=== PATIENT | female | born 1960 | race Hispanic/Latino ===

== ENCOUNTER 2017-10-25 13:35 | Emergency (ER) | payer BC ==
[~2017-10-25] VITALS: Ht 162.6 cm; Wt 59.9 kg
[~2017-10-25 13:35] MED LIST: AUGMENTIN 875-1 EACH PO; CLINDAMYCIN HC300 MG PO; CYCLOBENZAPRINE10 MG PO; DAILY MULTIPLE1 EACH PO; DICLOFENAC SODI75 MG PO; DILAUDID8 MG PO; HYDROCODON-ACE1 EA10 PO; IBUPROFEN400 MG PO; IBUPROFEN800 MG PO; KEFLEX500 MG PO; MULTI VITAMIN1 EACH PO; NAPROXEN500 MG PO; NORCO 5-325 TA1 EACH PO; OMEPRAZOLE20 MG PO; PERCOCET 10-321 EACH PO; PROVENTIL HFA6.7 GM INH; TESSALON PERLE100 MG PO; Z-SLEEP50 MG/30 M PO; ZOFRAN ODT4 MG PO
--- NOTE | 2017-10-26 07:22 | EKG ---
[facility] [address] [facility] [place], [place] [address] Signed Normal sinus rhythm Normal ECG No previous ECGs available Confirmed by SHAHRZAD ESTRADA MD ([id number]) on 10/26/2017 7:22:49 AM Electronically Signed By: SHAHRZAD ESTRADA MD 10/26/17 07 PATIENT NAME: WING CASTRO Electrocardiogram DATE OF : 60 PHYSICIAN: SHAHRZAD ESTRADA MD REPORT #: [id number] REPORT IS CONFIDENTIAL AND NOT TO BE RELEASED WITHOUT AUTHORIZATION
[2017-11-01] MEDS ORDERED: CYCLOBENZAPRINE10 MG PO (08:07)
== END 2017-10-25 16:35 | disposition home or self-care (01) ==
LOC: ED 13:35
DX: K80.20 Calculus of gallbladder without cholecystitis without obstruction (principal); F17.200 Nicotine dependence, unspecified, uncomplicated; Z90.710 Acquired absence of both cervix and uterus; Z90.89 Acquired absence of other organs; Z88.5 Allergy status to narcotic agent; Z88.8 Allergy status to other drugs, medicaments and biological substances; Z79.899 Other long term (current) drug therapy
CPT/HCPCS: 76705; 80053; 81001; 83690; 85025; 93005; 93010; 96374; 96375; 99284; J1885; J2270; J2405

== ENCOUNTER 2017-11-04 05:40 | Day surgery (SDC) | payer BC ==
[~2017-11-04] VITALS: Ht 162.6 cm; Wt 59.9 kg
[2017-11-04] MEDS ORDERED: XANAX2 MG PO (06:12)
--- NOTE | 2017-11-04 09:06 | NUR ---
11/04/17 0906 Grace Ha 0840 REPORT FROM CAD SPECIALIST, PT REPORTED PAIN AND CNRA GAVE MEDICAITON. RESP EVEN AND UNLABORED. 0850 PT O2 SAT 100%, O2 REMOVED. 0855 PT REPORTING PAIN INCREASING, 04/18. MEDICAITON GIVEN. 904 O2 SAT DECREASED TO 91%, O2 PLACED ON PT AT 2L.
--- NOTE | 2017-11-04 09:48 | NUR ---
PT ARRIVES TO DS UNIT ROOM 5 VIA STRETCHER. PT APPEARS TO BE DROWSY AND GRIMACING. PT PROVIDED WATER, JELLO, AND CRACKERS. FRIEND IN ROOM UPON ARRIVAL, ASKS FOR PAIN MED SCRIPT TO FILL FOR FRIEND. SCRIPT GIVEN TO FRIEND WITH PT'S APPROVAL. CALL LIGHT WITHIN REACH, NO FURTHER REQUESTS AT THIS TIME.
--- NOTE | 2017-11-04 10:45 | NUR ---
PT RATES PAIN A 7/10 SINCE ARRIVAL. IV PAIN MEDS GIVEN. ORAL PAIN MEDS GIVEN WITH CRACKERS AND WATER. PT STATES SHE "JUST WANTS TO GO HOME." FRIEND NOT PRESENT IN ROOM. PT UP TO THE BATHROOM WITH RN ASSIST, AMBULATES WELL BUT GUARDING ABD. PT STATES SHE WAS ABLE TO VOID.
[2017-11-04] MEDS ORDERED: PERCOCET 10-321 EACH PO (11:08)
[2017-11-04] MEDS ORDERED: MIRALAX119 GM (11:08)
--- NOTE | 2017-11-04 11:25 | NUR ---
LE: 1045: PT REQUESTS TO PUT HER OWN CLOTHING ON AND STATES SHE "FEELS MORE COMFORTABLE IN THEM." PT STILL REQUESTS TO GO HOME WITH PAIN RATING 7/10 STATING SHE CAN "MANAGE HER PAIN BETTER AT HOME." LE 1059: DC'D LEFT HAND IV WNL. PT TOLERATED WELL. (UNABLE TO CHART IN COMPUTER IV WAS NOT SHOWING PRESENT). LE 1110: PT'S FRIEND BACK IN ROOM. PT REQUESTS IF SHE CAN AMBULATE AROUND UNIT. RN AGREES TO ASSIST PT, AND PT DECLINES RN ASSIST AND WOULD LIKE HER FRIEND TO HELP HER AMBULATE. PT AND FRIEND ABOUT TO WALK OUT OF DS UNIT, RN ADVISES PT TO SIGN AMA PAPERWORK IF SHE WANTS TO LEAVE WITHOUT RECEIVING DC INSTUCTIONS. PT AGREES TO WAIT FOR DC INSTRUCTIONS STATING "I DONT WANT TO GET IN TROUBLE, I JUST WANT TO LEAVE." PT AND FRIEND WAIT IN ROOM FOR DC INSTUCTIONS TO BE GIVEN. LE 1115: DC INSTRUCTIONS GIVEN IN PRESENCE OF PT AND FRIEND. PT AND FRIEND AGREE AND UNDERSTAND INSTRUCTIONS WITH NO FURTHER QUESTIONS. PT DC'D OUT OF DS UNIT ROOM 5 VIA WHEELCHAIR.
--- NOTE | 2017-11-10 10:17 | OR ---
[facility] [address] [place], [place] [address] Signed DATE OF OPERATION: 11/04/2017 SURGEON: Mary Lucas MD PREOPERATIVE DIAGNOSES: 1. Cholelithiasis with cholecystitis. 2. Resolved pancreatitis. POSTOPERATIVE DIAGNOSES: 1. Cholelithiasis with cholecystitis. 2. Resolved pancreatitis. PROCEDURE PERFORMED: Laparoscopic cholecystectomy with intraoperative cholangiogram. ESTIMATED BLOOD LOSS: None. FINDINGS: Luciano had an extremely long floppy gallbladder. It had multiple 3 to 4 mm yellow cholesterol stones. The intraoperative cholangiogram was unremarkable. INDICATIONS: Luciano is a 57-year-old female who has been using hydrocodone 10 mg tablets the last year for left joint pain. However, 2 days before she came to my office, she had significant upper abdominal pain that was radiating through to her back. Her liver function tests and her lipase were all elevated. Ultrasound confirmed multiple mobile stones within the gallbladder. The gallbladder wall was not thickened. The common bile duct was a little dilated at 12 mm. She was evaluated by the ER doctor and discharged to home. She has been my office previously. Consequently, she decided to come straight from the ER to my office for evaluation. She said the pain is better, but she was able to take her chronic pain medications. In the office, I gave Luciano a booklet on the gallbladder, and we looked at that together very carefully. She understands the relationship of the gallstones to the pancreatitis. We also talked about laparoscopic versus open cholecystectomy. She understands expected intraop and postop course. There are risks to surgery including, but not limited to, bleeding, infection, scarring, change in contour of the skin, damage to bowel, damage to main bile duct, and incisional hernias. We also discussed the idea that she has a 3% to 7% chance of having retained stones within the distal common bile duct. This would require any ERCP as an additional procedure. She had expressed understanding and wished to proceed. Electronically Signed By: MARY LUCAS MD 11/10/17 1017 PATIENT NAME: LUCIANO CASTRO OPERATIVE REPORT DATE OF : 60 PHYSICIAN: MARY LUCAS MD REPORT #: [id number] REPORT IS CONFIDENTIAL AND NOT TO BE RELEASED WITHOUT AUTHORIZATION [facility] [address] [place] [id number] Signed PROCEDURE NOTE: Luciano was taken into our operating room and placed in the supine position under general endotracheal tube anesthesia. She was given preoperative antibiotics along with subcutaneous heparin. SCDs were utilized. She did require Xanax p.o. because of her anxiety coming to the hospital. After this, she was prepped and draped in the usual sterile fashion. All trocars were placed in usual positions under direct visualization of camera without difficulty. Her gallbladder was grasped and elevated in the right upper quadrant. The findings were as above. We carefully dissected out the triangle of Calot. We placed a clip across the cystic artery and it was divided. Our intraoperative cholangiocatheter was then inserted into the cystic duct. The intraoperative cholangiogram was then performed without difficulty. The cystic duct stump was secured with a PDS endoloop. Two clips were placed across the cystic duct stump to johann its location. The cyst. The gallbladder was then carefully removed from the gallbladder fossa with the help of the cautery and placed into an EndoCatch bag. After this, the right upper quadrant was irrigated and suctioned out until clear. We used our laparoscopic suturing device to pass 0 Vicryl suture on either side of the fascia of the subxiphoid trocar site. This was tied down to close this fascia primarily. After this, the gas was allowed to escape and all the trocars were removed. We then closed the fascia of the supraumbilical trocar site with interrupted simple and [id number] 0 Vicryl sutures. Local anesthetic was injected into all trocar sites. Each trocar site was irrigated and suctioned out until clear. The skin and dermis of each trocar site was closed with interrupted subcuticular Monocryl sutures. The gallbladder was opened on the back table by our circulating nurse and pictures were taken for photodocumentation. Dry gauze and tape were applied to all incisions. Luciano was awakened from anesthesia, extubated in the OR, and taken to recovery room in stable condition. Mary Lucas MD ALB/MODL /[id number] cc: Lyle Flood MD Electronically Signed By: MARY LUCAS MD 11/10/17 1017 PATIENT NAME: LUCIANO CASTRO OPERATIVE REPORT DATE OF : 60 PHYSICIAN: MARY LUCAS MD REPORT #: [id number] REPORT IS CONFIDENTIAL AND NOT TO BE RELEASED WITHOUT AUTHORIZATION [address] [address] Signed MOISES Mcdonnell Electronically Signed By: MARY LUCAS MD 11/10/17 1017 PATIENT NAME: GLORIALUCIANO MILAGROS OPERATIVE REPORT DATE OF : 60 PHYSICIAN: MARY LUCAS MD REPORT #: [id number] REPORT IS CONFIDENTIAL AND NOT TO BE RELEASED WITHOUT AUTHORIZATION
== END 2017-11-04 11:17 | disposition home or self-care (01) ==
LOC: DS 05:40
PROVIDERS: Colon & Rectal Surgery
PROC: BF03YZZ Plain Radiography of Gallbladder and Bile Ducts using Other Contrast (ICD-10-PCS; 2017-11-04)
PROC: 0FT44ZZ Resection of Gallbladder, Percutaneous Endoscopic Approach (ICD-10-PCS; principal; 2017-11-04 06:45)
DX: K80.10 Calculus of gallbladder with chronic cholecystitis without obstruction (principal); K21.9 Gastro-esophageal reflux disease without esophagitis; M17.0 Bilateral primary osteoarthritis of knee; M16.0 Bilateral primary osteoarthritis of hip; J32.9 Chronic sinusitis, unspecified; F17.210 Nicotine dependence, cigarettes, uncomplicated; Z90.89 Acquired absence of other organs; Z90.710 Acquired absence of both cervix and uterus; Z98.51 Tubal ligation status; Z98.890 Other specified postprocedural states; Z88.8 Allergy status to other drugs, medicaments and biological substances
CPT/HCPCS: 00790; 74300; J0330; J0690; J1100; J1644; J1885; J2250; J2270; J2405; J2704; J3010; J7120; Q9967

== ENCOUNTER 2017-12-28 08:20 | Day surgery (SDC) | payer BC ==
[~2017-12-28] VITALS: Ht 162.6 cm; Wt 59.9 kg
[~2017-12-28 08:20] MED LIST changes: +MIRALAX119 GM; +XANAX2 MG PO
--- NOTE | 2017-12-28 10:41 | NUR ---
12/28/17 1041 Carmen Paul 1007 PT ARRIVED IN PACU SLEEPY WITH NO C/O'S. ICE TO ABD. 1022 C/O ABD PAIN 610. FENTANYL 25MCG GIVEN IVP. 1029 NO CHANGE IN PAIN. REPEATED FENTANYL 25MCG IVP. 1035 PT RESTING. REU. 1039 C/O ABD PAIN 6/10. FENTANYL 25MCG GIVEN IVP. PT ASKING MULTIPLE QUESTIONS "IS THIS NORMAL TO HURT LIKE THIS AND I HAVE A BAD FEELING." REASSURED PT CONTINUOUSLY.
--- NOTE | 2017-12-28 11:54 | NUR ---
SOUP AND CRACKERS AND GIVEN. PT SITTING UP IN BED AND TOLERATING THAT FINE. DAUGHTER @ BS. ICED WATER GIVEN. CALL LIGHT W/IN REACH.
--- NOTE | 2017-12-28 11:59 | OR ---
[facility] [address] [place], [place] [address] Signed DATE OF OPERATION: 12/28/2017 SURGEON: Mary Lucas MD PREOPERATIVE DIAGNOSIS: Supraumbilical incarcerated trocar site, incisional hernia (3 cm). POSTOPERATIVE DIAGNOSES: 1. Supraumbilical incarcerated trocar site, incisional hernia (3 cm). 2. Umbilical hernia (4 mm). PROCEDURE: Supraumbilical trocar site incisional herniorrhaphy with intraabdominal Ventralex mesh (8 cm) (prolonged and difficult at 1 hour and 5 minutes). ESTIMATED BLOOD LOSS: None. FINDINGS: Luciano had a supraumbilical incarcerated trocar site incisional hernia containing omentum rather than being 1 cm in diameter, it was actually 3 cm in diameter. The omentum was circumferentially adherent to the fascial edge and it took extra time to divide that and placed it back in the abdomen. In addition, she has had several previous laparoscopic surgeries through her umbilicus through an infraumbilical incision and therefore had scar tissue at the base of the umbilicus associated with a 4 mm umbilical hernia. This had all be taken down as well and added additional time to the surgery and therefore we had to replace the umbilicus to the fascia later in the procedure taken together. This procedure was twice as long was normal for a simple supraumbilical trocar site incisional hernia. In this way, the procedure was prolonged and difficult. INDICATIONS: Luciano is a 57-year-old female, who continues to smoke at least half pack of cigarettes a day for the last 25 years. In October 2017, we had her for laparoscopic cholecystectomy. 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 She unfortunately developed an incisional hernia just above the umbilicus. It is painful and it is very difficult for her to lean up against the blackjack table or the house. Consequently, she came back to the office to have me look at it. I felt like I was able to partially reduce it in the office. I explained to Luciano that her risk of hernia is higher with the smoking and she does have a chronic smoker's cough. In fact, today, she was Electronically Signed By: MARY LUCAS MD 12/28/17 1159 PATIENT NAME: LUCIANO CASTRO OPERATIVE REPORT DATE OF : 60 REPORT #: [id number] PHYSICIAN: MARY LUCAS MD PCP: DALY STOCK REPORT IS CONFIDENTIAL AND NOT TO BE RELEASED WITHOUT AUTHORIZATION [facility] [address] [place] [phone] Signed coughing in our preop area. She was coughing in the operating room before we put her sleep and as soon as she woke up, she was coughing again. In our preop area, I met with Luciano and her daughter. We were able to identify the hernia and once again, I was not convinced I could completely reduce it. We marked the hernia appropriately before we took her into the operating room. In the office, I given Luciano a booklet on hernias and we looked at the nature of an incisional hernia along with a difference between the primary suture repair and a mesh repair. She understands and expected intraop and postop course. We did review the risks including, but not limited to bleeding, infection, scarring, change in contour of the skin, damage to bowel, infection of mesh requiring removal, recurrent hernias and chronic pain. She had expressed understanding and wished to proceed. PROCEDURE NOTE: Luciano was taken into our operating room and placed in the supine position under general endotracheal tube anesthesia. She was given preoperative antibiotics along with subcutaneous heparin. SCDs were utilized. After this, we utilized our previous supraumbilical transverse incision. We carried that down around the fascial defect. We worked on the superior side and we were able to free up the hernia sac from the fascial edge. As we approached the inferior side toward the umbilicus, we encountered a significant amount of scar tissue. In the end, we had to separate the umbilical skin from the underlying fascia in order to divide the previous chronic scar tissue from her previous laparoscopic surgeries. She had omentum through the fascial defect and adherent circumferentially to the edge of the fascial defect. Rather than a simple 1 cm trocar site, she had a 3 cm fascial defect. It took extra time to carefully divide the omentum from the fascial edge and control the small bleeders. Once the omentum was completely freed, we pulled it up through the fascial defect and we inspected it carefully. All hemostasis was excellent. There was no hole in the omentum that might lead to an internal hernia. After this, the omentum was reduced. We had to clean up some of the tissue around the fascial edge with our cautery. We then measured the fascial defect at 3 cm. We therefore chose our 8 cm round Ventralex mesh. We placed that in the abdominal cavity and laid it out flush and brought it up against the posterior abdominal wall. The fascial defect was then closed transversely with a running #1 Prolene suture to include the 4 mm umbilical fascial defect as well. Several passes of the suture went through the tab on the mesh to help keep it centered and hold it in place. The tab was then cut flush with the abdominal wall and discarded. After this, the abdominal wall was infiltrated with local anesthetic along the subcutaneous tissues. The wound was then irrigated and suctioned out until clear. We used a 2-0 PDS interrupted suture to hold the umbilical skin back down to the abdominal wall. We then closed some of the indurated subcutaneous fat gently with interrupted 3-0 Monocryl sutures. The dermis was then reapproximated with interrupted 3-0 subcuticular stitches. The skin edges were then reapproximated with a running 6-0 fast absorbing plain gut suture. Dry gauze and tape Electronically Signed By: MARY LUCAS MD 12/28/17 1159 PATIENT NAME: LUCIANO CASTRO OPERATIVE REPORT DATE OF : 60 REPORT #: [id number] PHYSICIAN: MARY LUCAS MD PCP: DALY STOCK REPORT IS CONFIDENTIAL AND NOT TO BE RELEASED WITHOUT AUTHORIZATION [address] [address] Signed were then applied. Luciano was awakened from anesthesia, extubated in the OR, and taken to recovery room in stable condition. MD BELLE Love/WILDER /[id number] cc: MD Mary Mills MD Linda Harries, PA Copies: AUGUSTO SMALL MD, ANDREW L MD HARRIES, LINDA PA ~ Electronically Signed By: MARY LUCAS MD 12/28/17 1159 PATIENT NAME: LUCIANO CASTRO OPERATIVE REPORT DATE OF : 60 REPORT #: [id number] PHYSICIAN: MARY LUCAS MD PCP: DALY STOCK REPORT IS CONFIDENTIAL AND NOT TO BE RELEASED WITHOUT AUTHORIZATION
--- NOTE | 2017-12-28 13:02 | NUR ---
PATIENT IS UP TO BR AND VOIDS FOR A SECOND TIME AND REQ DC HOME. VERBAL DC INSTRUCTIONS GIVEN IN PRESENCE OF PT'S DAUGHTER AND BOTH VERBALIZE UNDERSTANDING. PT DRESSES SELF IN PRESENCE OF DAUGHTER.
--- NOTE | 2017-12-28 13:31 | NUR ---
LE 1320: PATIENT TRANSFERS SELF TO AND PERSONAL VEHICLE AND TOLERATES THOSE TRANSFERS WELL.
== END 2017-12-28 13:20 | disposition home or self-care (01) ==
LOC: DS 08:20
PROVIDERS: Colon & Rectal Surgery
PROC: 0WUF0JZ Supplement Abdominal Wall with Synthetic Substitute, Open Approach (ICD-10-PCS; principal; 2017-12-28 11:00)
DX: K43.0 Incisional hernia with obstruction, without gangrene (principal); K42.9 Umbilical hernia without obstruction or gangrene; J32.9 Chronic sinusitis, unspecified; K21.9 Gastro-esophageal reflux disease without esophagitis; M16.0 Bilateral primary osteoarthritis of hip; M17.0 Bilateral primary osteoarthritis of knee; F17.210 Nicotine dependence, cigarettes, uncomplicated; J40 Bronchitis, not specified as acute or chronic; Z90.89 Acquired absence of other organs; Z98.51 Tubal ligation status; Z88.8 Allergy status to other drugs, medicaments and biological substances; Z79.899 Other long term (current) drug therapy
CPT/HCPCS: 00830; C1781; J0131; J0690; J1644; J1885; J2250; J2270; J2704; J2710; J2765; J3010; J7120

== ENCOUNTER 2019-01-25 07:05 | Observation (INO) | payer BC ==
[~2019-01-25] VITALS: Ht 162.6 cm; Wt 63.5 kg
[~2019-01-25 07:05] MED LIST changes: +ASPIR-LOW81 MG PO; +LIPITOR20 MG PO
--- NOTE | 2019-01-25 11:27 | NUR ---
01/25/19 1127 [address] SN 1116- PT ARRIVES TO PACU. PT IS ON 7 LITERS VIAS MASK QWITH 02 SATS IN HIGH 90'S. RESPS EVEN AND UNLABORED. PT DENIES PAIN NAUSEA AND DIZZINESS AT THIS TIME. VITAL SIGNS DELAYED DUE TO PT MOVING TO MUCH TO TAKE BLOOD PRESSURE.
--- NOTE | 2019-01-25 12:20 | NUR ---
PT ARRIVED FROM PACU. PT REPORTS 6/10 PAIN. SEE MAR FOR MEDICATION GIVEN. ASSESSMENT DONE. DRESSING SHOWS SMALL AMOUNT OF SHADOWING ON RIGHT SIDE OF DRESSING. PT REFUESES TO USE INCENTIVE SPIROMETER AT THIS TIME. PT PACING IN ROOM, GETTING UP AND DOWN FROM BED. PT ENCORUAGED TO STAY IN BED FOR THE NEXT HOUR FOR SAFETY PT IS NOT STEADY ON FEET. MD INFORMED OF PTS ANXIETY. VITALS TAKEN. PT UP TO VOID X2. PT TOLERATING PO WATER AND ICE CREAM. DAUGHTER AT BEDSIDE. NO ADDITIONAL REQUESTS OR COMPLAINTS. PT DEMONSTRATES USE OF CALL LIGHT. BED ALARM ON. MD STATES TO HOLD BOLUS FLUIDS, BOLUS HELD. PHARMACIST CALLED REGARDING TIMING OF ATROVASTATIN, STATES TO GIVE AT THIS TIME. SEE MAR FOR MEDICATIONS GIVEN. CALL LIGHT WITHIN REACH.
--- NOTE | 2019-01-25 13:20 | NUR ---
VITALS AND ASSESSMENT DUE. THIS RN TO BEDSIDE. PT RESTING ON RIGHT SIDE IN BED. PT REPROTS 4/10 PAIN. PT CONTINUES TO BE ANXIOUS, SQUIRMING IN BED, AND GETTING UP FREQUENTLY. THIS RN WALKS PT AROUND THE ROOM AND TO RESTROOM. PT UNSTEADY ON FEET. PT AGREES TO TAKE ATAVAN. SEE MAR FOR MEDICATION GIVEN. VITALS TAKEN. ASSESSMENT DONE. NO NEW DRAINAGE NOTED ON DRESSING. CRACKERS AND SODA PROVIDED PER PT REQUEST. PT ASSISTED WITH ORDING FOOD. NO ADDITIONAL REQUESTS OR COMPALINTS AT THIS TIME. BED ALARM ON. CALL LIGHT WITHIN REACH.
--- NOTE | 2019-01-25 14:05 | NUR ---
PATIENT CALLS TO USE BATHROOM. PATIENT GOES TO USE BATHROOM. ONE PERSON ASSISTING. PATIENT BACKS TO BED. PATIENT ASKS FOR CRACKERS AND COCA COLA. CRACKERS AND COCA COLA GIVEN. I&O DONE. CALL LIGHT WITHIN REACH. NO OTHER NEEDS AT THIS TIME
--- NOTE | 2019-01-25 14:19 | NUR ---
VITALS AND ASSESSMENT DUE. THIS RN TO BEDSIDE. PT REPORTS 5/10 PAIN AND DENIES NEED FOR ADDITIONAL PAIN MEDICATION AT THIS TIME. SMALL AMOUNT OF RED DRAINAGE NOTED ON RIGHT SIDE OF DRESSING, WITH ERASER SIZE NEW DRAINAGE. PT DENIES NAUSEA. PT REPORTS HUNGER, PT ENCORUAGED TO LOOK AT MENU BUT STATES "I DONT' WANT ANYTHING FROM THERE." PT NOW RESTING IN BED AND REPORTS IMPROVEMENT IN ANXIETY. SBA UP TO RESTROOM. PT CONTINUES TO BE IMPULSIVE AND UNSTEADY AT TIMES. PT BACK TO BED. PT REACHES 1500 ON INCENTIVE SPIROMETER. NO ADDITIONAL REQUESTS OR COMPLAINTS AT THIS TIME. CALL LIGHT WITHIN REACH. BED ALARM ON.
--- NOTE | 2019-01-25 15:15 | NUR ---
PATIENT ASKED FOR WALK IN THE HALLWAY. PATIENT'S DAUGHTER AND THIS CASTING SUPERVISOR WALKED WITH HER ONE LAP AND THEN PATIENT SAID TO ME I DON'T NEED YOUR HELP, "I'M WITH MY DAUGHTER". I NOTIFIED NURSING STAFF AND RN IN CHARGE BECAUSE PATIENT DISAPPEARED AND AT THIS TIME THE DIRECTOR IMMUNOLOGY CALL BECAUSE THE PATIENT WAS LEAVING OUTSIDE.
--- NOTE | 2019-01-25 15:23 | NUR ---
THE FOLLOWING NOTE WAS WRITTEN BY SHELLEY HO (ORIGINALY POSTED IN THE WRONG CHART): PT LEFT THE FLOOR, HERRERA ROSA INFORMED ME THAT THE PT WAS VERY RUDE ABOUT GOING ON A WALK BY HERSELF WITH HER DAUGHTER, HERRERA TRIED TO MAKE HER STAY. HERRERA WAS WATCHING HER FROM THE END OF THE HALLWAY AND THE STRUCTURAL STEEL IRONWORKER CALLED TO SAY THE PATIENT IS UPFRONT AND WALKING OUTSIDE. I WENT OUT FRONT WITH TO HAVE HER COME BACK INSIDE, INFORMED PATIENT THAT IT IS AGAINST HOSPITAL POLICY FOR HER TO LEAVE AND ALSO TO BE SMOKING. AND THE DANGERS WITH SMOKING WITH HER RECENT SURGERY. OFFERED PT A WHEELCHAIR AND SHE DENIED. PT BACK IN ROOM.
--- NOTE | 2019-01-25 15:30 | NUR ---
I WAS NOTIFIED BY OTHER NURSING STAFF AT 1518 THAT THE PT IS MISSING. STAFF WENT LOOKING FOR THE PT AND SHE RETURNED TO HER ROOM AT 1521 FOR WHICH SHE WENT OUTSIDE TO SMOKE. PT STATES SHE THOUGHT SHE WAS ALLOWED AND STATES SHE WILL NOT GO OUT AGAIN. OPTICS ENGINEER AND DR WATERS NOTIFIED. 1524: DR WATERS TO THE ROOM SPEAKING WITH THE PT AND CHECKING UP ON HER. VSS AND PT STATES HER NECK PAIN IS A 7/10 WHICH SHE STATES IS ACCEPTABLE AND DOES NOT NEED ANYTHING FOR IT. SHE STATES SHE WILL NOTIFY STAFF IF HER PAIN INCREASES. MEPLEX DRESSING ON THE PT'S NECK REMAINS IN PLACE WITH SOME SHADOWING ON THE RIGHT SIDE NOTED.
--- NOTE | 2019-01-25 15:40 | NUR ---
THIS RN NOTIFIED THAT PT HAD LEFT FLOOR. THIS RN TO BEDSIDE. PT WORKING WITH MARLO APODACA. PT EDUCATION DONE. PT VERBALIZES UNDERSTANDING OF EDUCATION. PT REPORST 6/10 PAIN AND DENIES NAUSEA. DRESSING REAMINS WITH SMALL AMOUNT OF SHADOWING, NO NEW DRAINAGE NOTED. MD AWARE OF PTS TIME OFF OF UNIT, NICOTENE PATCH ORDERED. CALL LIGHT WITHIN REACH. BED ALARM ON.
--- NOTE | 2019-01-25 15:44 | NUR ---
AWARE OF THE PT LEAVING THE DEPT. PT IS NOW BACK IN HER ROOM AND SHE STATES SHE WILL NOT LEAVE AGAIN.
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
--- NOTE | 2019-01-25 16:07 | NUR ---
PT'S NECK APPEARS UNCHANGED WITH NO SWELLING NOTED AND THE PT DENIES ANY SOB. PT STATES HER PAIN IS A 7/10 AND WOULD LIKE SOMETHING FOR IT, SEE EMAR.
--- NOTE | 2019-01-25 16:51 | NUR ---
PT SLEEPING AT THIS TIME.
--- NOTE | 2019-01-25 17:44 | NUR ---
AFTERNOON ASSESSMENT DUE. THIS RN TO BEDSIDE. PT RESTING ON RIGHT SIDE WITH EYES CLOSED. PT OPENS EYES TO MOVEMENT IN ROOM. ASSESSMENT DONE. DRESSING CONTINUES TO SHOW TWO SMALL DIME SIZE RED DRAINGE SPOTS ON RIGHT SIDE. NO NEW DRAINAGE NOTED. LUNG SOUNDS WHEEZY, CLEARS WITH I.S. USE. PT REACHES 1500 ON I.S. PT REPORTS 4/10 PAIN AND DENIES NEED FOR ADDITIONAL PAIN MEDICATION AT THIS TIME. PT BACK TO RESTING ON RIGHT SIDE. NO ADDITIONAL REQUESTS OR COMPLAINTS AT THIS TIME. DINNER AT BEDSIDE, PT STATES "ILL EAT LATER." BED RAILS UP. CALL LIGHT WITHIN [facility]. BED ALARM ON.
--- NOTE | 2019-01-25 17:46 | NUR ---
PT POST OP DAY ZERO FOR RIGHT THYROID ECTOMY. 1PA, PT LEFT UNIT TODAY AND WAS FOUND OUTSIDE SMOKING. EDUCATION DONE. NICOTENE PATCH IN PLACE. PT TOELRATING REGULAR DIET WITH NO NAUSEA THIS SHIFT. FREQUENT URINATION, VOIDING QUANTITY SUFFICIENT. DRESSING SHOWS SMALL AMOUNT OF SHADOWING. PRN PAIN MEDICATION GIVEN X2 THIS SHIFT. PRN ATAVAN GIVEN X1 FOR ANXIETY. BED ALARM ON. PT DOES NOT USE CALL LIGHT.
--- NOTE | 2019-01-25 18:27 | NUR ---
THIS RN TO ROOM TO CHECK ON PT. PT VISITING WITH FAMILY. PT REPORTS PAIN AT 4/10 AND DENIES NAUSEA. PT HAS YET TO EAT DINNER. PT STATES "I'LL EAT A LITTLE LATER." PUDDING PROVIDED FOR PTS GRANDDAUGHTER. NO ADDTIONAL REQUESTS OR COMPLAINTS. CALL LIGHT WITHIN REACH.
--- NOTE | 2019-01-25 19:10 | NUR ---
SHIFT REPORT RECEIVED FROM [facility] MARLO MCNAMARA AT BEDSIDE. PT RESTING IN BED, EYES CLOSED, RR WNL. PT APPEARS COMFORTABLE, NO DISTRESS NOTED. MEPILEX IN PLACE, MINIMAL SHADOWING NOTED. WILL MONITOR. CALL LIGHT IN REACH.
--- NOTE | 2019-01-25 20:09 | NUR ---
ASSESSMENT COMPLETE, PT A/OX4. RATES PAIN 05/19. PRN PERCOCET GIVEN PER PT REQUEST. VSS. PT REPORTS PAIN WITH SWALLOWING, DENIES SOB OR CHEST PAIN. MEPILEX TO NECK INTACT, MINIMAL SANGUINEOUS SHADOWING NOTED TO NECK. WILL MONITOR. PT SITTING UP IN BED, FRESH SODA PROVIDED. NO FURTHER NEEDS. CALL LIGHT IN REACH.
--- NOTE | 2019-01-25 20:13 | NUR ---
HELPED PT TO THE BATHROOM AND BACK TO BED. BEDSIDE TABLE AND CALL LIGHT IN REACH.
--- NOTE | 2019-01-26 00:04 | NUR ---
HELPED PT TO THE BATHROOM AND BACK TO BED. WARM BLANKET GIVEN AND HEAT TURNED UP. PT NEEDS NOTHING MORE AT THIS TIME.
--- NOTE | 2019-01-26 00:13 | NUR ---
PT CALLED ASKING FOR PAIN MEDICATION. ADMINISTERED 2 PERCOCET FOR 7/10 PAIN. PT DENIES FURTHER NEEDS AT THIS TIME. CALL LIGHT IS WITHIN REACH.
--- NOTE | 2019-01-26 01:03 | NUR ---
PT RESTING IN BED ON RA. RR WNL. NO DISTRESS NOTED, CALL LIGHT IN REACH. IV FLUIDS INFUSING PER MD ORDERS, SITE WNL.
--- NOTE | 2019-01-26 03:00 | NUR ---
ASSESSMENT COMPLETE. NO NEW CONCERNS. PT RATES PAIN 6-7/10 AFTER LAST PRN PAIN MEDICATION ADMINISTRATION. PT A/O. MEPILEX DRESSING INTACT, NO NEW SHADOWING OR DRAINAGE NOTED FROM PREVIOUS ASSESSMENT. PT DENIES NEEDS, CALL LIGHT IN REACH.
--- NOTE | 2019-01-26 03:58 | NUR ---
HELPED PT TO THE BATHROOM AND BACK TO BED. PT ASKED FOR PAIN MEDICATION. I INFORMED HER RN TONYA.
--- NOTE | 2019-01-26 04:14 | NUR ---
PT REPORTS 7/10 PAIN. PRN PERCOCET ADMINISTERED. PT DENIES ADDITIONAL NEEDS. SCD'S IN PLACE. CALL LIGHT IN REACH.
--- NOTE | 2019-01-26 06:43 | NUR ---
PT HAD UNEVENTFUL NIGHT. PT SLEPT ON AND OFF THIS SHIFT. PT REQUESTING 2 PERCOCET Q4H FOR ADEQUATE 6/10 PAIN CONTROL. PT SBA WITH AMBULATION. MEPILEX INTACT, NO NEW SHADOWING NOTED THIS SHIFT. PT REGULAR DIET, TOLERATING WELL. NO NAUSEA THIS SHIFT.
--- NOTE | 2019-01-26 07:15 | NUR ---
PATIENT SITTING UP IN BED. RN IN ROOM. HANDS AND FACE CLEANED. PATIENT'S BREAKFAST ORDERED. PATIENT TRANSFERRED TO TO CHAIR. CHAIR ALARM ON. BLACK COFFEE GIVEN. CALL LIGHT WITHIN REACH. NO OTHER NEEDS AT THIS TIME
--- NOTE | 2019-01-26 07:33 | NUR ---
Pt resting in bed and is tearfull this am. She states her pain is controlled but states she just wants to "go home". She was asked if she would like some ativan to help her calm down and she declined. After speaking with the pt for a while she did calm down and states that she is "okay" and she is now speaking calmly. Dressing remains intact with some noted shadowing and the pt denies any sob. Trach tray remains at the bedside, hob is elevated and the call light is within reach, scd's are on and runninig.
--- NOTE | 2019-01-26 08:21 | NUR ---
PATIENT CALLS AND ASKS FOR PAIN MEDICINE. RN NOTIFIED.
--- NOTE | 2019-01-26 08:39 | NUR ---
PT RESTING IN HER CHAIR HAVING JUST FINISHED EATING BREAKFAST. SHE STATES SHE HAS PAIN RATED AT 7/10 AND WAS MEDICATED. SHE STATES SHE WANTS TO GO HOME AND STARTED CRYING, SHE WAS MEDICATED WITH ATIVAN ORDERED AND REASSURED THAT DR WATERS WILL BECOMING TO SEE HER LATER TODAY. PT STATES SHE UNDERSTANDS AND CALMED DOWN AFTER THE MEDICATIONS WERE GIVEN.
[2019-01-26] MEDS ORDERED: VENTOLIN HFA18 GM INH (08:43)
--- NOTE | 2019-01-26 08:44 | NUR ---
MED REC COMPLETE
--- NOTE | 2019-01-26 09:08 | NUR ---
PATIENT SITTING UP IN CHAIR. VITAL SIGNS AND I&O DONE. ICE WATER GIVEN. CHAIR ALARM ON. CALL LIGHT WITHIN REACH. NO OHTER NEEDS AT THIS TIME
--- NOTE | 2019-01-26 09:54 | NUR ---
PT SLEEPING AT THIS TIME.
--- NOTE | 2019-01-26 09:55 | NUR ---
PT AWOKE WHILE I WAS IN HER ROOM AND SHE STATES SHE IS DOING BETTER AT THIS TIME.
--- NOTE | 2019-01-26 11:19 | NUR ---
PT SLEEPING AT THIS TIME.
--- NOTE | 2019-01-26 13:11 | NUR ---
PATIENT SITTING UP IN CHAIR. DAUGHTER IN ROOM. VITAL SIGNS AND I&O DONE. PATIENT IS STILL THINKING ABOUT TO ORDER LUNCH. ICE WATER AND COFFEE GIVEN. CALL LIGHT WITHIN REACH. NO OTHER NEEDS AT THIS TIME
[2019-01-26] MEDS ORDERED: NICOTINE PATCH1 EAC1 TD (13:47)
[2019-01-26] MEDS ORDERED: OXYCODON-ACETA1 EAC2 PO (13:47)
[2019-01-26] MEDS ORDERED: TYLENOL325 MG PO (13:48)
--- NOTE | 2019-01-26 14:09 | NUR ---
PATIENT SITTING UP IN CHAIR. DAUGHTER IN ROOM. FINAL VITAL SIGNS WERE OBTAINED PRIOR TO DISCHARGE FROM THE UNIT.
== END 2019-01-26 14:10 | disposition home or self-care (01) ==
LOC: DS 07:05 → MS 11:37 → DS 12:15 → MS 12:15 → DS 01-26 14:10 → MS 01-26 14:10
PROVIDERS: ADMIT Surgery
PROC: 0GTH0ZZ Resection of Right Thyroid Gland Lobe, Open Approach (ICD-10-PCS; 2019-01-25)
PROC: 0GTJ0ZZ Resection of Thyroid Gland Isthmus, Open Approach (ICD-10-PCS; principal; 2019-01-25 08:45)
DX: D34 Benign neoplasm of thyroid gland (principal); G89.29 Other chronic pain; J44.9 Chronic obstructive pulmonary disease, unspecified; E03.9 Hypothyroidism, unspecified; F41.9 Anxiety disorder, unspecified; M25.552 Pain in left hip; F17.210 Nicotine dependence, cigarettes, uncomplicated; Z88.8 Allergy status to other drugs, medicaments and biological substances; Z79.891 Long term (current) use of opiate analgesic; Z79.51 Long term (current) use of inhaled steroids; Z79.899 Other long term (current) drug therapy
CPT/HCPCS: 00320; G0378; J0131; J0330; J0690; J1100; J1885; J2250; J2300; J2405; J2704; J3010; J3475; J7120

== ENCOUNTER 2019-03-14 07:00 | Day surgery (SDC) | payer BC ==
[~2019-03-14] VITALS: Ht 162.6 cm; Wt 63.5 kg
[~2019-03-14 07:00] MED LIST changes: +NICOTINE PATCH1 EAC1 TD; +OXYCODON-ACETA1 EAC2 PO; +TYLENOL325 MG PO; +VENTOLIN HFA18 GM INH
--- NOTE | 2019-03-14 09:38 | NUR ---
03/14/19 0938 Leanne Sanchez 0929-PATIENT ARRIVED TO PACU ON 6L MASK REACTIVE COUGHING ORAL AIRWAY IN PLACE. RR EVEN. SR. 0932-ORAL AIRWAY REMOVED. ABDOMEN SOFT PASSING GAS. COUGHING SUCTIONED CLEAR SPUTUM SEEN. 0937-PATIENT AWAKE DENIES NAUSEA OR PAIN TO ABDOMEN. REPORTS "WAS SUPPOSED TO HAVE HIP REPLACED 2 YEARS AGO SO HURTS AT HOME" LAB AT BEDSIDE TO DRAW BLOOD. PATIENT ON RA 99%.
--- NOTE | 2019-03-14 15:06 | OR ---
[facility] [address], [place] [address] Signed DATE OF OPERATION: 03/14/2019 SURGEON: Mary Lucas MD PREOPERATIVE DIAGNOSIS: Rectal bleeding. POSTOPERATIVE DIAGNOSES: 1. Minimal sigmoid diverticulosis. 2. 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 PROCEDURE: Colonoscopy with cold biopsy. ESTIMATED BLOOD LOSS: None. INDICATIONS: Luciano is a 58-year-old female who has had trouble for the last 9 to 12 months with rectal bleeding. She says in the last 2 months has been coming out with blood clots. She had been to her primary care provider. She was asked to see me for her initial colonoscopy. To her knowledge, there is no family history of colon cancer or polyps. I gave her a pamphlet on colonoscopy in the office. We did review that in detail. She understands the nature of the test along with the risks including, but not limited to gas, bloating, crampy abdominal pain, bleeding, perforation requiring surgery, and missed diagnosis. In addition, she requires daily hydrocodone 10 mg tablets 4 times a day for chronic pain along with her cyclobenzaprine. Consequently, we did ask that an anesthesia provider help us with increased monitoring and sedation with propofol. That proved to be a bryant decision as she obviously required the propofol in order to adequately sedate her. Luciano had expressed her understanding and wished to proceed. PROCEDURE NOTE: Luciano was taken into our endoscopy suite and placed in the left lateral decubitus position. She was given IV sedation with propofol per our nurse certified medical assistant. A digital rectal exam was performed. She has good sphincter tone. A small external hemorrhoid. In the posterior midline, she has an ulcerated mass. It was probably 3 or 4 cm from the anal verge. I can place my index finger over the top of the mass and circumferentially around the mass and then inferiorly. I pushed on the mass [id number] and it does not appear fixed to any underlying structures. After this, the adult colonoscope was introduced and advanced all the way around into the cecum under direct visualization of Electronically Signed By: MARY LUCAS MD 03/14/19 1506 PATIENT NAME: LUCIANO CASTRO OPERATIVE REPORT DATE OF : 60 REPORT #: [id number] PHYSICIAN: MARY LUCAS MD PCP: SUNSHINE STOCK REPORT IS CONFIDENTIAL AND NOT TO BE RELEASED WITHOUT AUTHORIZATION [facility] [address], [place] [address] Signed the camera without difficulty. Her prep was average. She did have some areas of liquid pasty stool I could not quite irrigate and suction out completely. We did see the appendiceal orifice, the rampart's foot, and the ileocecal valve. We took pictures throughout for photodocumentation. The scope was then slowly withdrawn. We found that she does have some sigmoid diverticula. They were moderate in size, but few in number and scattered about. The rectum was unremarkable other than the rectal tumor. We did retroflex the scope, but there was enough liquid stool that I could not get a nice view of the rectal tumor on the retroflexed position of the scope. We went ahead and anteflexed the scope and brought the scope down and we took multiple cold biopsies of this obviously ulcerated tumor mass. Additional pictures were taken of the tumor for photodocumentation. After this, the gas was suctioned out and colonoscope removed. Luciano tolerated the procedure quite well. RECOMMENDATIONS: I will see Luciano back in my office in 7 to 14 days to review her results. We have ordered a CEA level in the recovery room. She will need a CT scan of chest, abdomen, and pelvis and eventually an MRI of her pelvis. Mary Lucas MD ALB/MODL /[id number] cc: MD Sunshine Love PA Copies: MARY LUCAS MD, LINDA PA ~ Electronically Signed By: MARY LUCAS MD 03/14/19 1506 PATIENT NAME: LUCIANO CASTRO OPERATIVE REPORT DATE OF : 60 REPORT #: [id number] PHYSICIAN: MARY LUCAS MD PCP: SUNSHINE STOCK REPORT IS CONFIDENTIAL AND NOT TO BE RELEASED WITHOUT AUTHORIZATION
== END 2019-03-14 10:10 | disposition home or self-care (01) ==
LOC: OPS 07:00 → DS 07:00 → OPS 08:15 → DS 09:45 → OPS 09:45
PROVIDERS: Colon & Rectal Surgery
PROC: 0DBP8ZX Excision of Rectum, Via Natural or Artificial Opening Endoscopic, Diagnostic (ICD-10-PCS; principal; 2019-03-14 08:15)
DX: C20 Malignant neoplasm of rectum (principal); K57.30 Diverticulosis of large intestine without perforation or abscess without bleeding; J32.9 Chronic sinusitis, unspecified; K21.9 Gastro-esophageal reflux disease without esophagitis; F17.210 Nicotine dependence, cigarettes, uncomplicated; J44.9 Chronic obstructive pulmonary disease, unspecified; R51 Headache; G89.29 Other chronic pain; K44.9 Diaphragmatic hernia without obstruction or gangrene; Z88.8 Allergy status to other drugs, medicaments and biological substances; Z88.5 Allergy status to narcotic agent; Z79.891 Long term (current) use of opiate analgesic; Z79.82 Long term (current) use of aspirin; Z79.899 Other long term (current) drug therapy
CPT/HCPCS: 36415; 82378; J2704; J7120

== ENCOUNTER 2019-06-28 11:46 | Inpatient (IN) | payer BC ==
[~2019-06-28] VITALS: Ht 162.6 cm; Wt 56.6 kg
--- OUTSIDE RECORDS SUMMARY | 2019-06-28 11:50 | XMS ---
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 Fouzia VISIT COUNT (12 MO.) Sridevi Almaraz TOTAL 1 NOTE: Visits indicate total known visits. 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
[2019-06-28] MEDS ORDERED: PROAIR HFA8.5 GM INH (12:26)
--- NOTE | 2019-06-28 16:20 | NUR ---
PATIENT ARRIVED TO UNIT VIA HOSPITAL BED FROM ED. ASSESSMENT COMPLETE. VALUABLES LOCKED UP IN SAFE. RT IN ROOM WITH PATIENT FOR BREATHING TREATMENT. CRACKLES IN LUNGS WITH NONPRODUCTIVE COUGH. ABX FINISHED INFUSING, LR RUNNING AT 75 MLS/HR. WARM BLANKET PROVIDED. IV STARTED TO LEFT FOREARM, 22G. NO BLOOD RETURN FROM PORT. DEACCESSED AND REACCESSED, STILL NO BLOOD RETURN. ALTEPLASE ORDER INITIATED. PATIENT REPORTS PAIN OF 6/10, PAIN MEDICATION PROVIDED IN THE ER. DR FITZPATRICK NOTIFIED, NO NEW ORDERS AT THIS TIME. MED REC ORDERED FROM PHARMACY. NO FURTHER NEEDS AT THIS TIME, CALL LIGHT WITHIN REACH.
--- NOTE | 2019-06-28 19:22 | NUR ---
PATIENT REPORTS PAIN OF 6/10, PRN PAIN MEDICATION ADMINISTERED. PATIENT SITTING AT EDGE OF BED EATING DINNER, CALL LIGHT WITHIN REACH.
--- NOTE | 2019-06-28 19:50 | NUR ---
PATIENT SITTING AT THE EDGE OF BED EATING DINNER. PATIENT JUST HAD PAIN MEDS FROM DAY SHIFT A FEW MINUTES AGO. NO OTHER NEEDS AT THIS TIME. CALL LIGHT IN REACH.
--- NOTE | 2019-06-28 20:17 | NUR ---
VITALS AND I&OS DONE AND CHARTED. HELPED PT TO THE BATHROOM AND BACK TO BED. BEDSIDE TABLE AND CALL LIGHT IN REACH. PT NEEDS NOTHING AT THIS TIME.
--- NOTE | 2019-06-28 21:05 | NUR ---
CHARGE NURSE ROUNDING. pt RESTING WITH EYES CLOSED, RESPIRATIONS REGULAR AND UNLABORED. CALL LIGHT WITHIN REACH. WHITEBOARD UPDATED.
--- NOTE | 2019-06-28 21:07 | NUR ---
PUT THE THE 2MLS/ALTEPLASE INTO THE IMPLANTED PORT. PATIENT'S PAIN STILL REMAINS 6/10, BUT SHE WAS ASLEEP WHEN I WENT IN TO ADMINISTER THE TREATMENT. PATIENT RESTING QUIETLY NOW. CALL LIGHT IN REACH.
--- NOTE | 2019-06-28 23:49 | NUR ---
1ST DOSE OF ALTEPLASE WAS NOT SUCCESSFUL IN ALLOWING ANY BLOOD RETURN. 2ND DOSE WAS ADMINISTERED AND WILL GIVE IT 2 HOURS AND TRY TO DRAW FROM THE PORT AGAIN. GOT PATIENT A NEW CUP OF ICE AND 7UP AT HER REQUEST. SHE IS GOING TO TRY AND LAY DOWN AND SLEEP SOMEMORE. CALL LIGHT IN REACH.
--- NOTE | 2019-06-29 01:50 | NUR ---
PATIENT'S PORT NOW DRAWS BLOOD. 6MLS WASTED AND THEN FLUSHED WITH 20MLS NS AND LOCKED WITH HEPARIN 500UNITS IN 5MLS. ASSESSMENT DONE AND PATIENT FEELING BETTER. PATIENT ON TELE#6 IN SR IN THE 70'S. PATIENT GOING TO TRY AND GO BACK TO SLEEP. CALL LIGHT IN REACH.
--- NOTE | 2019-06-29 03:12 | NUR ---
helped pt to the bathroom and back to bed. two warm blankets given per pt request.
--- NOTE | 2019-06-29 03:29 | NUR ---
PATIENT AWAKE STILL WATCHING TV, HAD TO GO IN AND ADJUST PATIENT'S TELE LEADS THEY HAVE COME OFF. LEADS BACK ON AND PATIENT HAS NO NEEDS. CALL LIGHT IN REACH.
--- NOTE | 2019-06-29 04:41 | NUR ---
PATIENT JUST HAD TO GO TO THE BATHROOM TWICE. THE FIRST TIME TO URINATE AND THEN SHE SUDDENLY HAD TO URINATE. PATIENT HAS SLEPT SOME,BUT WATCHED TV A LOT OF THE NIGHT AND GOT PAIN MEDICATION FROM THIS RN AROUND 1AM . IV IS RUNNING AND WNL AND HER IMPLANTED PORT YOU CAN NOW DRAW BLOOD FROM AFTER THE ALTEPLASE AND IS NOW LOCKED UP WITH HEPARIN. PATIENT VOIDING FINE AND LUNG SOUNDS ARE DEMINISHED IN THE BASES. PATIENT BACK IN BED AND CALL LIGHT IS IN REACH.
--- NOTE | 2019-06-29 07:39 | NUR ---
REPORT RECIEVED FROM NIGHT YARITZA SELLERS. PT IS AAO IN BEB. RESPIRATIONS EQUAL AND NONLABORED. CALL LGT IN REACH. LR AT 75 INFUSING. RT IN TO ADMINISTER BREATHING TREATMENT. PT DENIES NEEDS AT THIS TIME.
--- NOTE | 2019-06-29 08:14 | NUR ---
PATIENT RESTING IN BED. PATIENT REFUSED TO CLEAN HER FACE AND HANDS. SHE SAYS SHE DIDN'T SLEEP WELL AND NOW SHE WANTS TO SLEEP. CALL LIGHT WITHIN REACH. NO OTHER NEEDS AT THIS TIME.
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
--- NOTE | 2019-06-29 09:37 | NUR ---
PATIENT SLEEPING. VITAL SIGNS AND I&O DONE BY RN. PATIENT WANTS TO REST AND SLEEP
--- NOTE | 2019-06-29 11:06 | NUR ---
CALL LIGHT ANSWERED. PATIENT RESTING IN BED. PATIENT GOES TO USE BATHROOM. ONE PERSON ASSISTING. PATIENT COMPLAINS ABOUT NAUSEA. RN NOTIFIED. CALL LIGHT WITHIN REACH. NO OTHER NEEDS AT THIS TIME
--- NOTE | 2019-06-29 11:22 | NUR ---
PT REPORTING NAUSEA AND ABDOMINAL PAIN FROM "NAUSEA". ZOFRAN AND TYLENOL ADMINISTERED. CALL LIGHT IN REACH. SODA PROVIDED PER REQUEST. PT DENIES FURTHER NEEDS.
--- NOTE | 2019-06-29 11:37 | NUR ---
PT REPORTS NAUSEA HAS SUBSIDED AND PAIN IS "BETTER" WITH NAUSEA RELIEF.
--- NOTE | 2019-06-29 13:35 | NUR ---
PATIENT RESTING IN BED. RN IN ROOM. VITAL SIGNS AND I&O DONE. CALL LIGHT WITHIN REACH. NO OTHER NEEDS AT THIS TIME
--- NOTE | 2019-06-29 14:42 | NUR ---
CALL LIGHT ANSWERED. PATIENT RESTING IN BED. PATIENT GOES TO USE BATHROOM. ONE PERSON ASSISTING. PATIENT BACKS TO BED. HANDS AND AXILLARY AREA CLEANED. CALL LIGHT WITHIN REACH. NO OTHER NEEDS AT THIS TIME
[2019-06-29] MEDS ORDERED: SSD25 GM TOP (15:28)
[2019-06-29] MEDS ORDERED: IMODIUM A-D2 M2 PO (15:29)
[2019-06-29] MEDS ORDERED: NARCAN4 MG NAS (15:32)
[2019-06-29] MEDS ORDERED: PROCHLORPERAZIN10 MG PO (15:33)
--- NOTE | 2019-06-29 15:33 | NUR ---
MED REC COMPLETE
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
--- NOTE | 2019-06-29 19:18 | NUR ---
RECEIVED REPORT FROM MARLO GLASER. pt RESTING IN BED WATCHING TV. WHITEBOARD UPDATED. REFILLED SODA. NO FURTHER REQUESTS AT THIS TIME. CALL LIGHT CARMEN[place]IA [place].
--- NOTE | 2019-06-29 20:25 | NUR ---
patients vs are complete. she has yet to use the restroom so output still needs to be recorded. Fresh ice water was given, nothing further needed at this time.
--- NOTE | 2019-06-29 21:48 | NUR ---
PT CALLED DUE TO BEEPING IV PUMP. SHE REQUESTED HER PAIN MEDS, WILL CHECK WITH HER NURSE. PT DENIES FURTHER NEEDS AT THIS TIME. CALL LIGHT IS WITHIN REACH.
--- NOTE | 2019-06-29 22:01 | NUR ---
IN ROOM TO ADMINISTER OXYCODONE FOR 7/10 PAIN AND HANG NEW IV BAG. PT DENIES FURTHER NEEDS AT THIS TIME. CALL LIGHT IS CLOSE AND IV IS INFUSING FINE.
--- NOTE | 2019-06-29 22:15 | NUR ---
ASSESSMENT DONE. pt REFUSED REMOVAL OF NICODERM PATCH AT THIS TIME. ASKED THAT IT BE DONE LATER. EDUCATED ON SIDE EFFECTS AND pt MAINTAINED REQUESTED FOR REMOVAL AT A LATER TIME. PAIN MEDICATION RECENTLY GIVEN FOR 04/18 PAIN. REQUESTED MAALOX, EDUCATED ABOUT TIMING, WILL GIVE SOON ABLE. LIGHTS OFF FOR COMFORT. CALL LIGHT WITHIN REACH.
--- NOTE | 2019-06-29 23:17 | NUR ---
GAVE MAALOX PER REQUESTS (SEE MAR). pt RATED PAIN "BETTER 5/10" UP TO TOILET TO VOID AND BACK TO BED. CALL LIGHT AND POSSESSIONS WITHIN REACH.
--- NOTE | 2019-06-30 00:59 | NUR ---
ROUNDED ON pt. WATCHING TV IN BED. ALLOWED NICODERM TO BE REMOVED. REPORTED 5/10 PAIN AND HEADACHE. PRN GIVEN (SEE MAR). UP TO TOILET AND BACK TO BED. NO FURTHER REQUESTS AT THIS TIME. CALL LIGHT WITHIN REACH.
--- NOTE | 2019-06-30 01:55 | NUR ---
PRN PAIN MED FOR 6/10 PAIN. pt UP TO VOID AND BACK TO BED. ASSESSMENT DONE. NO REQUESTS AT THIS TIME. CALL LIGHT WITHIN REACH.
--- NOTE | 2019-06-30 03:10 | NUR ---
patient asked for assistance to the restroom. and requested another 7-up. nothing further was needed at this time.
--- NOTE | 2019-06-30 06:08 | NUR ---
MEDICATIONS GIVEN (SEE MAR). CALL LIGHT WITHIN REACH.
--- NOTE | 2019-06-30 06:10 | NUR ---
pt DID NOT REST MUCH DURING SHIFT. PAIN CONTROLLED WITH PRN PAIN MEDS Q4 OXY AND TYLENOL. SBA. DAILY WT. IVF INFUSING. TOLERATING REGULAR DIET. USES CALL LIGHT APPROPRIATELY.
--- NOTE | 2019-06-30 06:22 | NUR ---
HELPED PT TO THE BATHROOM AND BACK TO BED. VITALS AND I&OS DONE AND CHARTED. BEDSIDE TABLE AND CALL LIGHT IN REACH.
--- NOTE | 2019-06-30 07:35 | NUR ---
PATIENT RESTING IN BED. RN IN ROOM. CALL LIGHT WITHIN REACH. NO OTHER NEEDS AT THIS TIME
--- NOTE | 2019-06-30 09:27 | NUR ---
PATIENT RESTING IN BED. VITAL SIGNS AND I&O DONE. CALL LIGHT WITHIN REACH. NO OTHER NEEDS AT THIS TIME
[2019-06-30] MEDS ORDERED: NICOTINE PATCH1 EAC1 TD (10:15)
[2019-06-30] MEDS ORDERED: DOXYCYCLINE HY100 MG PO (10:17)
--- NOTE | 2019-06-30 10:55 | NUR ---
PT HAS BREAKFAST REMAINS AWAKE AND UP IN ROOM. REFUSES SENNA STATES SHE HAS LOOSE STOOL. DR FITZPATRICK IN TO SEE PT WRITES DC ORDER. TICKET FOR ITEMS IN SAFE RETURNED, SL DC'D CATH INTACT. PT DRESSING HERSELF DENIES NEED OF ASSIST. PHARMACIST IN TO DISCUSS MEDICATIONS PT VERBALIZES UNDERSTANDING
== END 2019-06-30 11:20 | disposition home or self-care (01) | DRG 194 ==
LOC: ED 11:46 → MS 14:55
PROVIDERS: ADMIT Student in an Organized Health Care Education/Training Program
DX: J13 Pneumonia due to Streptococcus pneumoniae (principal); J44.0 Chronic obstructive pulmonary disease with (acute) lower respiratory infection; C21.0 Malignant neoplasm of anus, unspecified; F17.210 Nicotine dependence, cigarettes, uncomplicated; E78.5 Hyperlipidemia, unspecified; Z88.5 Allergy status to narcotic agent; Z88.8 Allergy status to other drugs, medicaments and biological substances; Z79.82 Long term (current) use of aspirin; Z79.891 Long term (current) use of opiate analgesic; Z79.899 Other long term (current) drug therapy
CPT/HCPCS: 36415; 71046; 80048; 80053; 81001; 83540; 83605; 83735; 84466; 85025; 86713; 87899; 90688; 94640; 94668; 96365; 96375; 99285-25; 99406; J0456; J0696; J1650; J2405; J2997; J7030; J7060; J7120

== ENCOUNTER 2021-10-11 08:39 | Emergency (ER) | payer BC ==
[~2021-10-11] VITALS: Ht 162.6 cm; Wt 56.6 kg
[~2021-10-11 08:39] MED LIST changes: +DOXYCYCLINE HY100 MG PO; +IMODIUM A-D2 M2 PO; +NARCAN4 MG NAS; +PROAIR HFA8.5 GM INH; +PROCHLORPERAZIN10 MG PO; +SSD25 GM TOP
--- OUTSIDE RECORDS SUMMARY | 2021-10-11 08:40 | XMS ---
PreManage Notification: WING CASTRO Security Termite Helper Events No recent Security Events currently on file CRITERIA MET - PDMP CARE PROVIDERS ZANA YANG SIMON Electrical Laboratory Technician/Mold Stripper Current PHONE: [phone] Viktor has no Care Guidelines for this patient. EIsaak VISIT COUNT (12 MO.) 1 [facility] TOTAL 1 NOTE: Visits indicate total known visits. ED/UCC VISIT TRACKING (12 MO.) 10/11/2021 08:39 [facility] TYPE: Emergency COMPLAINT: - SOB INPATIENT VISIT TRACKING (12 MO.) No inpatient visits to display in this time frame [id number]
[2021-10-11] MEDS ORDERED: BUPRENORPHINE HC8 MG SL (08:48)
[2021-10-11] MEDS ORDERED: ONDANSETRON ODT8 MG PO (10:45)
[2021-10-11] MEDS ORDERED: CHLORDIAZEPOXID25 MG PO (10:45)
[2021-10-11] MEDS ORDERED: VENTOLIN HFA18 GM INH (10:45)
[2021-10-11] MEDS ORDERED: PREDNISONE20 MG PO (10:48)
== END 2021-10-11 11:30 | disposition home or self-care (01) ==
LOC: ED 08:39
DX: J44.1 Chronic obstructive pulmonary disease with (acute) exacerbation (principal); F10.139 Alcohol abuse with withdrawal, unspecified; Z20.822 Contact with and (suspected) exposure to COVID-19; F17.200 Nicotine dependence, unspecified, uncomplicated; Z88.8 Allergy status to other drugs, medicaments and biological substances; Z88.5 Allergy status to narcotic agent; Z79.899 Other long term (current) drug therapy; Z79.82 Long term (current) use of aspirin
CPT/HCPCS: 71045; 80053; 85025; 94640; 96374; 96375; 96376; 99285-25; C9803; J2060; J2930; U0003

== ENCOUNTER 2022-02-20 14:52 | Inpatient (IN) | payer BC ==
[~2022-02-20] VITALS: Ht 162.6 cm; Wt 57.0 kg
[~2022-02-20 14:52] MED LIST changes: +BUPRENORPHINE HC8 MG SL; +CHLORDIAZEPOXID25 MG PO; +ONDANSETRON ODT8 MG PO; +PREDNISONE20 MG PO
--- OUTSIDE RECORDS SUMMARY | 2022-02-20 14:54 | XMS ---
PreManage Notification: WING CASTRO Security Sandblasting Supervisor Events No recent Security Events currently on file CRITERIA MET - PDMP CARE PROVIDERS DALY STOCK Physician Tower Technician 10/12/2021-Current PHONE: Unknown ZANA YANG SIMON Bunk House Worker/Clay Processing Labourer Current PHONE: [phone] Viktor has no Care Guidelines for this patient. EIsaak VISIT COUNT (12 MO.) 2 KWADWO Almaraz TOTAL 2 NOTE: Visits indicate total known visits. ED/UCC VISIT TRACKING (12 MO.) 02/20/2022 14:52 [facility] TYPE: Emergency COMPLAINT: - WEAKNESS 10/11/2021 08:39 [facility] TYPE: Emergency COMPLAINT: - SOB DIAGNOSES: - Nicotine dependence, unspecified, uncomplicated - Other oil heaterman (current) drug therapy - Alcohol abuse with withdrawal, unspecified - Chronic obstructive pulmonary disease with (acute) exacerbation - intermodal owner operator truck driver (current) use of aspirin - Shortness of breath - Allergy status to narcotic agent - Allergy status to other drugs, medicaments and biological substances INPATIENT VISIT TRACKING (12 MO.) No inpatient visits to display in this time frame [id number]
[2022-02-21] MEDS ORDERED: BUDESONIDE-FO10.2 G1 INH (08:13)
[2022-02-23] MEDS ORDERED: AMOX TR-K CLV1 EAC1 PO (11:21)
== END 2022-02-23 17:28 | disposition home or self-care (01) | DRG 872 ==
LOC: ED 14:52 → MS 17:41 → CCU 17:41 → MS 02-21 13:45
PROVIDERS: ADMIT Internal Medicine; ATTEND Internal Medicine
DX: A41.9 Sepsis, unspecified organism (principal); L03.317 Cellulitis of buttock; E87.1 Hypo-osmolality and hyponatremia; L89.152 Pressure ulcer of sacral region, stage 2; E78.5 Hyperlipidemia, unspecified; Z20.822 Contact with and (suspected) exposure to COVID-19; J44.9 Chronic obstructive pulmonary disease, unspecified; F10.20 Alcohol dependence, uncomplicated; F11.10 Opioid abuse, uncomplicated; Z88.8 Allergy status to other drugs, medicaments and biological substances; Z88.5 Allergy status to narcotic agent; Z79.899 Other long term (current) drug therapy; F17.200 Nicotine dependence, unspecified, uncomplicated; Z90.710 Acquired absence of both cervix and uterus; Z98.890 Other specified postprocedural states
CPT/HCPCS: 36415; 80048; 80053; 80202; 81001; 83605; 83690; 83735; 85025; 87040; 87502; 94667; 94668; 97161; 97165; A9270; C9803; J0295; J1650; J1885; J2270; J2405; J3370; J3475; J7060; J7121; U0003

== ENCOUNTER 2022-10-08 16:00 | Emergency (ER) | payer OTHER ==
[~2022-10-08] VITALS: Ht 162.6 cm; Wt 56.7 kg
[~2022-10-08 16:00] MED LIST changes: +AMOX TR-K CLV1 EAC1 PO; +BUDESONIDE-FO10.2 G1 INH
--- OUTSIDE RECORDS SUMMARY | 2022-10-08 16:02 | XMS ---
PreManage Notification: WING CASTRO Security Rn Night Events No recent Security Events currently on file CRITERIA MET - PDMP CARE PROVIDERS DALY STOCK Physician Salesperson Corsets 10/12/2021-Current PHONE: Unknown ZANA YANG SIMON Parachute Crown Sewer/Rehab Aid Current PHONE: [phone] Viktor has no Care Guidelines for this patient. EIsaak VISIT COUNT (12 MO.) 3 KWADWO Almaraz TOTAL 3 NOTE: Visits indicate total known visits. ED/UCC VISIT TRACKING (12 MO.) 10/08/2022 16:00 [facility] TYPE: Emergency COMPLAINT: - SOB, BARELY ABLE TO WALK, FEEL LIKE PASSING OUT 02/20/2022 14:52 [facility] TYPE: Emergency COMPLAINT: - WEAKNESS 10/11/2021 08:39 [facility] TYPE: Emergency COMPLAINT: - SOB DIAGNOSES: - Nicotine dependence, unspecified, uncomplicated - Allergy status to narcotic agent - FPC (current) use of aspirin - Alcohol abuse with withdrawal, unspecified - Contact with and (suspected) exposure to COVID-19 - Allergy status to other drugs, medicaments and biological substances - Shortness of breath - Chronic obstructive pulmonary disease with (acute) exacerbation - Other usp (current) drug therapy INPATIENT VISIT TRACKING (12 MO.) 02/20/2022 17:[address] [facility] OR TYPE: Medical Surgical COMPLAINT: - SEPSIS DIAGNOSES: - Contact with and (suspected) exposure to COVID-19 - Cellulitis of buttock - Other specified postprocedural states - Alcohol dependence, uncomplicated - Chronic obstructive pulmonary disease, unspecified - Hyperlipidemia, unspecified - Allergy status to narcotic agent - Hypo-osmolality and hyponatremia - Sepsis, unspecified organism - Other usp (current) drug therapy - Hyperlipidemia, unspecified - Chronic obstructive pulmonary disease, unspecified - Allergy status to narcotic agent - Other specified postprocedural states - Pressure ulcer of sacral region, stage 2 - Hypo-osmolality and hyponatremia - Nicotine dependence, unspecified, uncomplicated - Acquired absence of both cervix and uterus - Allergy status to other drugs, medicaments and biological substances - Pressure ulcer of sacral region, stage 2 - Contact with and (suspected) exposure to COVID-19 - Other remote computer terminal operator (current) drug therapy - Cellulitis of buttock - Nicotine dependence, unspecified, uncomplicated - Opioid abuse, uncomplicated - Alcohol dependence, uncomplicated - Allergy status to other drugs, medicaments and biological substances - Acquired absence of both cervix and uterus - Opioid abuse, uncomplicated [id number]
[2022-10-09] MEDS ORDERED: ALBUTEROL2.5 MG/3 M INH (06:15)
== END 2022-10-09 07:00 | disposition home or self-care (01) ==
LOC: ED 16:00
DX: J44.1 Chronic obstructive pulmonary disease with (acute) exacerbation (principal); F17.200 Nicotine dependence, unspecified, uncomplicated; Z88.8 Allergy status to other drugs, medicaments and biological substances; Z88.5 Allergy status to narcotic agent; Z79.899 Other long term (current) drug therapy; Z79.82 Long term (current) use of aspirin; Z20.822 Contact with and (suspected) exposure to COVID-19
CPT/HCPCS: 36415; 71045; 80053; 83880; 85025; 87502; 94640; 96374; 99285-25; C9803; J2930; U0003

== ENCOUNTER 2023-06-27 18:44 | Inpatient (IN) | payer OTHER ==
[~2023-06-27] VITALS: Ht 162.6 cm; Wt 59.0 kg
[~2023-06-27 18:44] MED LIST changes: +ALBUTEROL2.5 MG/3 M INH
[2023-06-27 19:31] LABS: BASOPHILS 1.2 % (0-2); EOSINOPHILS 2.5 % (0-6); HEMATOCRIT 41.9 % (35.0-50.0); HEMOGLOBIN 13.8 g/dL (12.0-18.0); LYMPHOCYTES 21.3 % (24-44); MCH 34.5 (27-36); MCHC 32.9 g/dl (30-36); MCV 104.9 fl (81-99); MONOCYTES 14.1 % (0-12); NEUTROPHILS 60.9 % (39-80); PLATELET COUNT 331 K/uL (140-440); RDW 16.4 (10.5-15.0)
[2023-06-27 19:48] LABS: ALBUMIN 3.5 g/dL (3.4-5.0); ALBUMIN/GLOBULIN RATIO 0.97 (1.1-2.4); ANION GAP 18.9 (7-21); BILIRUBIN, TOTAL 0.4 ng/dL (0.2-1.0); BUN/CREATININE RATIO 7.4 (6.0-28.6); CREATININE, SERUM 0.54 mg/dL (0.55-1.02); POTASSIUM 4.9 mmol/L (3.5-5.1); PROTEIN, TOTAL 7.1 g/dL (6.4-8.2)
[2023-06-27 20:00] LABS: INFLUENZA B NAA NEGATIVE (NEGATIVE); RESPIRATORY SYNCYTIAL VIR NAA NEGATIVE (NEGATIVE)
--- OUTSIDE RECORDS SUMMARY | 2023-06-27 20:13 | XMS ---
PreManage Notification: WING CASTRO Security Disciplinary Hearing Officer Events No recent Security Events currently on file CRITERIA MET - PDMP CARE PROVIDERS DALY STOCK Physician Race Steward 10/12/2021-Current PHONE: Unknown Bird Solomon- Dentist: Movie Editor [facility] PHONE: [phone] -Donna- Dentist: Movie Editor [facility] PHONE: [phone] ZANA YANG SIMON Filler Shredder/Brown Sourer Current PHONE: [phone] Viktor has no Care Guidelines for this patient. Fouzia VISIT COUNT (12 MO.) 2 KWADWO Almaraz TOTAL 2 NOTE: Visits indicate total known visits. ED/UCC VISIT TRACKING (12 MO.) 06/27/2023 18:45 [facility] TYPE: Emergency COMPLAINT: - DIFFICULTY BREATHING 10/08/2022 16:00 [facility] TYPE: Emergency COMPLAINT: - SOB, BARELY ABLE TO WALK, FEEL LIKE PASSING OUT DIAGNOSES: - Allergy status to narcotic agent - Allergy status to other drugs, medicaments and biological substances - Chronic obstructive pulmonary disease with (acute) exacerbation - Contact with and (suspected) exposure to COVID-19 - Cough, unspecified - intermediate manager (current) use of aspirin - Nicotine dependence, unspecified, uncomplicated - Other fci (current) drug therapy INPATIENT VISIT TRACKING (12 MO.) No inpatient visits to display in this time frame [id number]
[2023-06-27 21:58] VITALS: BP 172/95
[2023-06-27] MEDS ORDERED: DEXTROAMP-AMPHE10 MG PO (22:23)
[2023-06-27] MEDS ORDERED: DIPHENOXYLATE-1 EACH (22:23)
[2023-06-28] VITALS (7 sets, daily range): BP systolic 119–162; BP diastolic 67–88
[2023-06-28 05:28] LABS: BASOPHILS 0.2 % (0-2); HEMATOCRIT 38.4 % (35.0-50.0); HEMOGLOBIN 12.7 g/dL (12.0-18.0); MCH 34.8 (27-36); MCV 105.6 fl (81-99); MONOCYTES 1.6 % (0-12); NEUTROPHILS 94.2 % (39-80); PLATELET COUNT 283 K/uL (140-440); RBC 3.63 M/ul (4.3-5.7); RDW 16.2 (10.5-15.0)
[2023-06-28 05:45] LABS: ALBUMIN 3.1 g/dL (3.4-5.0); ALBUMIN/GLOBULIN RATIO 0.94 (1.1-2.4); ANION GAP 14.3 (7-21); BILIRUBIN, TOTAL 0.3 ng/dL (0.2-1.0); BUN/CREATININE RATIO 10.25 (6.0-28.6); CALCIUM 8.7 mg/dL (8.5-10.1); CREATININE, SERUM 0.78 mg/dL (0.55-1.02); MAGNESIUM 1.8 mg/dL (1.8-2.4); PHOSPHORUS, INORGANIC 4.2 mg/dL (2.5-4.9); POTASSIUM 4.3 mmol/L (3.5-5.1); PROTEIN, TOTAL 6.4 g/dL (6.4-8.2)
[2023-06-28] MEDS ORDERED: BUPRENORPHINE HC8 MG SL (07:52)
[2023-06-28] MEDS ORDERED: VENTOLIN HFA18 GM INH (09:59)
[2023-06-28] MEDS ORDERED: ALBUTEROL2.5 MG/3 M INH (10:00)
--- NOTE | 2023-06-28 20:26 | EKG ---
[facility] [address] [facility] [place] [address] Signed Normal sinus rhythm Normal ECG When compared with ECG of 24-JAN-2019 08:43, No significant change was found Confirmed by Roscoe Prater MD () on 06/28/2023 8:25:46 PM Electronically Signed By: ROSCOE PRATER MD 06/28/232025 PATIENT NAME: WING CASTRO MILAGROS Electrocardiogram DATE OF : 60 PHYSICIAN: ROSCOE PRATER MD REPORT #: [id number] REPORT IS CONFIDENTIAL AND NOT TO BE RELEASED WITHOUT AUTHORIZATION
[2023-06-29 05:07] VITALS: BP 143/70
[2023-06-29 05:35] LABS: HEMATOCRIT 36.7 % (35.0-50.0); HEMOGLOBIN 12.1 g/dL (12.0-18.0); LYMPHOCYTES 2.3 % (24-44); MCH 34.5 (27-36); MCHC 32.9 g/dl (30-36); MCV 104.9 fl (81-99); MONOCYTES 5.1 % (0-12); NEUTROPHILS 92.6 % (39-80); PLATELET COUNT 306 K/uL (140-440); RDW 16.4 (10.5-15.0)
[2023-06-29 05:55] LABS: ALBUMIN 3.1 g/dL (3.4-5.0); ALBUMIN/GLOBULIN RATIO 1.03 (1.1-2.4); ANION GAP 10.2 (7-21); BILIRUBIN, TOTAL 0.2 ng/dL (0.2-1.0); BUN/CREATININE RATIO 11.86 (6.0-28.6); CREATININE, SERUM 0.59 mg/dL (0.55-1.02); POTASSIUM 4.2 mmol/L (3.5-5.1); PROTEIN, TOTAL 6.1 g/dL (6.4-8.2)
[2023-06-29 09:31] VITALS: BP 128/71
[2023-06-29 13:36] VITALS: BP 123/74
[2023-06-29 18:37] VITALS: BP 123/70
[2023-06-29 20:09] VITALS: BP 126/72
[2023-06-30 05:26] VITALS: BP 131/73
[2023-06-30 10:10] VITALS: BP 138/68
[2023-06-30] MEDS ORDERED: METHYLPREDNISOLO4 M1 PO (14:12)
[2023-06-30 14:26] VITALS: BP 124/64
[2023-06-30 16:56] LABS: INFLUENZA B NAA NEGATIVE (NEGATIVE); RESPIRATORY SYNCYTIAL VIR NAA NEGATIVE (NEGATIVE)
[2023-06-30 17:48] VITALS: BP 135/70
[2023-06-30 20:36] VITALS: BP 140/70
[2023-07-01 06:09] VITALS: BP 147/75
[2023-07-01 10:51] VITALS: BP 164/93
[2023-07-01] MEDS ORDERED: ALBUTEROL2.5 MG/3 M INH (11:30)
[2023-07-01] MEDS ORDERED: VENTOLIN HFA18 GM INH (11:30)
[2023-07-01] MEDS ORDERED: BUDESONIDE-FO10.2 G1 INH (11:31)
[2023-07-01] MEDS ORDERED: SPIRIVA18 MCG INH (11:33)
[2023-07-01 14:54] VITALS: BP 149/80
== END 2023-07-01 15:04 | disposition home or self-care (01) | DRG 189 ==
LOC: ED 18:44 → MS 18:46
PROVIDERS: Emergency Medicine; Internal Medicine; ADMIT Family Medicine; ATTEND Family Medicine
DX: J96.01 Acute respiratory failure with hypoxia (principal); J44.1 Chronic obstructive pulmonary disease with (acute) exacerbation; R53.1 Weakness; R74.8 Abnormal levels of other serum enzymes; F17.210 Nicotine dependence, cigarettes, uncomplicated; K40.90 Unilateral inguinal hernia, without obstruction or gangrene, not specified as recurrent; Z20.822 Contact with and (suspected) exposure to COVID-19; J02.9 Acute pharyngitis, unspecified; Z85.048 Personal history of other malignant neoplasm of rectum, rectosigmoid junction, and anus; Z85.850 Personal history of malignant neoplasm of thyroid; Z71.6 Tobacco abuse counseling; Z98.890 Other specified postprocedural states; Z90.49 Acquired absence of other specified parts of digestive tract; Z90.89 Acquired absence of other organs; Z90.710 Acquired absence of both cervix and uterus; Z88.8 Allergy status to other drugs, medicaments and biological substances; Z88.5 Allergy status to narcotic agent; Z79.51 Long term (current) use of inhaled steroids; Z88.1 Allergy status to other antibiotic agents; Z79.2 Long term (current) use of antibiotics; Z79.899 Other long term (current) drug therapy; Z79.82 Long term (current) use of aspirin
CPT/HCPCS: 36415; 71045; 80053; 83735; 83880; 84100; 84484; 85025; 85060; 87502; 93005; 93010; 94640; 94644; 94667; 94668; 94760; 94761; 94762; 96374; 97161; 97165; 97530; 97535; 99285-25; 99406; A9270; C9803; J0456; J1650; J2405; J2920; J2930; J7060; Q0177; U0002

== ENCOUNTER 2023-11-03 22:18 | Inpatient (IN) | payer OTHER ==
[~2023-11-03] VITALS: Ht 162.6 cm; Wt 61.0 kg
[~2023-11-03 22:18] MED LIST changes: +DEXTROAMP-AMPHE10 MG PO; +DIPHENOXYLATE-1 EACH; +METHYLPREDNISOLO4 M1 PO; +SPIRIVA18 MCG INH
--- OUTSIDE RECORDS SUMMARY | 2023-11-03 22:21 | XMS ---
PreManage Notification: WING CASTRO Security Apron Worker Events No recent Security Events currently on file CRITERIA MET - PDMP CARE PROVIDERS DALY STOCK Physician Key Entry Operator 10/12/2021-Current PHONE: Unknown Bird Solomon- Dentist: Store Product Demonstrator [facility] PHONE: [phone] -Donna- Dentist: Store Product Demonstrator [facility] PHONE: [phone] ZANA YANG SIMON Naval Aircrewman Mechanical/Rate Engineer Current PHONE: [phone] Viktor has no Care Guidelines for this patient. Fouzia VISIT COUNT (12 MO.) 2 KWADWO Almaraz TOTAL 2 NOTE: Visits indicate total known visits. ED/UCC VISIT TRACKING (12 MO.) 11/03/2023 22:18 [facility] TYPE: Emergency COMPLAINT: - SHORTNESS OF BREATH 06/27/2023 18:45 [facility] TYPE: Emergency COMPLAINT: - DIFFICULTY BREATHING INPATIENT VISIT TRACKING (12 MO.) 06/28/2023 09:33 [facility] TYPE: Medical Surgical COMPLAINT: - COPD EXACERBATION DIAGNOSES: - Abnormal levels of other serum enzymes - Acquired absence of both cervix and uterus - Acquired absence of other organs - Acquired absence of other specified parts of digestive tract - Acute pharyngitis, unspecified - Acute respiratory failure with hypoxia - Allergy status to narcotic agent - Allergy status to other antibiotic agents - Allergy status to other drugs, medicaments and biological substances - Chronic obstructive pulmonary disease with (acute) exacerbation - Chronic obstructive pulmonary disease, unspecified - Contact with and (suspected) exposure to COVID-19 - skilled nursing (current) use of antibiotics - skilled nursing (current) use of aspirin - superintendent container terminal (current) use of inhaled steroids - Nicotine dependence, cigarettes, uncomplicated - Other superintendent container terminal (current) drug therapy - Other specified postprocedural states - Personal history of malignant neoplasm of thyroid - Personal history of other malignant neoplasm of rectum, rectosigmoid junction, and anus - Tobacco abuse counseling - Unilateral inguinal hernia, without obstruction or gangrene, not specified as recurrent - Weakness [id number]
[2023-11-03 22:31] LABS: PH, VENOUS 7.385 (7.31-7.41)
[2023-11-03 22:39] LABS: HEMATOCRIT 39.5 % (35.0-50.0); HEMOGLOBIN 13.6 g/dL (12.0-18.0); MCH 35.4 (27-36); MCHC 34.3 g/dl (30-36); MCV 103.3 fl (81-99); PLATELET COUNT 279 K/uL (140-440); RBC 3.83 M/ul (4.3-5.7); RDW 14.1 (10.5-15.0)
[2023-11-03 22:53] LABS: BANDS, MANUAL DIFF 4; LYMPHOCYTES, MANUAL DIFF 14; MONOCYTES, MANUAL DIFF 4; NEUTROPHILS, MANUAL DIFF 78
[2023-11-03 22:57] LABS: ALBUMIN 3.3 g/dL (3.4-5.0); ALBUMIN/GLOBULIN RATIO 1.03 (1.1-2.4); ANION GAP 19.1 (7-21); BILIRUBIN, TOTAL 0.8 ng/dL (0.2-1.0); BUN/CREATININE RATIO 5.45 (6.0-28.6); CALCIUM 8.3 mg/dL (8.5-10.1); CREATININE, SERUM 0.55 mg/dL (0.55-1.02); POTASSIUM 4.1 mmol/L (3.5-5.1); PROTEIN, TOTAL 6.5 g/dL (6.4-8.2)
[2023-11-03 23:32] LABS: INFLUENZA B NAA NEGATIVE (NEGATIVE); RESPIRATORY SYNCYTIAL VIR NAA NEGATIVE (NEGATIVE)
[2023-11-04] VITALS (7 sets, daily range): BP systolic 125–147; BP diastolic 57–91
--- NOTE | 2023-11-04 02:00 | NUR ---
SBAR REPORT RECEIVED FROM CARLOZ SELLERS. PATIENT WING WAS BROUGHT TO THE UNIT VIA A STRETCHER WITH VSS AND WDL PER MONITOR. SHE APPEARS AND ENDORSES ANXIETY. PATIENT WING STATES THAT SHE WOULD LIKE MORPHINE " SOON SHE CAN" FOR PAIN 5/10 IN HER CHEST FROM COUGHING. 2RN SKIN CHECK PERFORMED AT BEDSIDE. SHE IS NOTED TO HAVE A GENERALIZED, NON PURITIC RASH. NEURO- ALERT AND ORIENTED X 4, TREMULOUS, PERRL, ABLE TO MOVE ALL EXTREMITIES WITH STRENGTH 4/5, BED ALARM ON CARDIAC- SR, S1/S2 APPRECIATED, AFEBRILE RESP- DIMINISHED BREATH SOUNDS IN ALL 4 QUADRATS, 4 L NC, STRONG COUGH GI/- ACTIVE BOWEL TONES IN ALL 4 QUADRANTS, REGULAR DIET, INCONTINENCE STATED INT- SEE ABOVE RIGHT BRACHIAL PERIPHERAL IV
--- NOTE | 2023-11-04 02:16 | NUR ---
PT REPORTS 6/10 PAIN IN RIGHT CHEST AND HIPS. PRN PAIN MED PROVIDED. CALL LIGHT EDUCATION PROVIDED. BED ALARM ON, CALL LIGHT IN REACH.
--- NOTE | 2023-11-04 02:47 | NUR ---
BED ALARMING, PT REMINDED TO CALL BEFORE GETTING UP. SBA TO BSC AND BACK TO BED. SNACKS AND DRINKS PROVIDED. PT STATES NO OTHER NEEDS AT THIS TIME. CALL LIGHT IN REACH.
--- NOTE | 2023-11-04 04:00 | NUR ---
REPORT RECEIVED FROM JACK SELLERS. PT RESTING IN BED, WATCHING TV. NO NEEDS AT THIS TIME. NC @ 4L, SPO2 95%. CALL LIGHT IN REACH.
--- NOTE | 2023-11-04 05:26 | NUR ---
PT STATES SHE HAS 6/10 RIGHT CHEST, HIP AND LOWER LEG PAIN, CRAMPING. PRN PAIN MEDS PROVIDED. IV WNL. PT STATES SHE ONLY HAS SOB WITH ACTIVITY. SPO2 95% ON 4L NC. SODA PROVIDED. PT STATES NO OTHER NEEDS AT THIS TIME. CALL LIGHT IN REACH, BED ALARM ON.
[2023-11-04 05:30] LABS: BASOPHILS 0.2 % (0-2); HEMATOCRIT 39.5 % (35.0-50.0); HEMOGLOBIN 13.6 g/dL (12.0-18.0); LYMPHOCYTES 1.6 % (24-44); MCHC 34.5 g/dl (30-36); MCV 104.4 fl (81-99); MONOCYTES 3.8 % (0-12); NEUTROPHILS 94.4 % (39-80); PLATELET COUNT 248 K/uL (140-440); RBC 3.78 M/ul (4.3-5.7); RDW 14.1 (10.5-15.0)
[2023-11-04 05:45] LABS: ALBUMIN 3.2 g/dL (3.4-5.0); ANION GAP 15.3 (7-21); BILIRUBIN, TOTAL 0.8 ng/dL (0.2-1.0); BUN/CREATININE RATIO 6.25 (6.0-28.6); CALCIUM 8.3 mg/dL (8.5-10.1); CREATININE, SERUM 0.8 mg/dL (0.55-1.02); POTASSIUM 4.3 mmol/L (3.5-5.1); PROTEIN, TOTAL 6.4 g/dL (6.4-8.2)
--- NOTE | 2023-11-04 06:07 | NUR ---
PT RESTING IN BED, EYES CLOSED. RR EVEN, UNLABORED. SPO2 96% ON 4L NC. BED ALARM ON, CALL LIGHT IN REACH.
--- NOTE | 2023-11-04 06:34 | NUR ---
PT CALLS TO REPORT LOWER LEG CRAMPING. PT UP TO BSC AND BACK TO BED. MAGNESIUM LAB ADDED TO MORNING DRAW. VS AND I&O COMPLETED. PT STATES LEG CRAMPING IS BETTER NOW. SHE STATES SHE HAS NEVER HAD EPISODES LIKE THIS AND THAT STANDING ON THE LEGS HELP. THE CRAMPING IS INTERMITTENT AND IS MOSTLY IN THE ANTERIOR LOWER LEGS. NC @ 4L. PT STATES NO OTHER NEEDS AT THIS TIME. CALL LIGHT IN REACH, BED ALARM ON.
--- NOTE | 2023-11-04 07:30 | NUR ---
REPORT RECIEVED FROM CONRAD VIGIL RN. PATIENT IS A [facility] CONVINENCE IN ROOM 127. PATIENT ALERT AND ORIENTED PER REPORT. CALL LIGHT IN REACH.
--- NOTE | 2023-11-04 08:30 | NUR ---
PATIENT SITTING AT SIDE OF BED, VITALS AND I&OS CHARTED. PATIENT REFUSED BREAKFAST BUT KEPT COFFEE. UP TO BS FOR 50ML VOID. CALL LIGHT IN EASY REACH
[2023-11-04] MEDS ORDERED: BUDESONIDE-FO10.2 G1 INH (09:20)
--- NOTE | 2023-11-04 10:48 | NUR ---
SPOKE TO PATIENT ABOUT THE DISCHARGE PLAN. PATIENT LIVES ALONE IN [facility]. PATIENT HAS FRIENDS AND FAMILY THAT CAN HELP NEEDED. PATIENT DOES NOT USE DME. PATIENT HAS HOME O2 FROM [facility], BUT DOES NOT USE IT. PATIENT'S O2 ORDER WAS FOR 2 LITERS NEEDED. PATIENT HAS FAMILY THAT CAN HELP NEEDED. PATIENT CAN DO THEIR OWN ADLS. PATIENT ALSO DRIVES NEEDED. PATIENT HAS A LONG HISTORY OF COPD. PATIENT FELS THOUGH SHE DOES NOT NEED ANY DISCHAGRE PLANNING NEEDS. PATIENT DOES NOT NEED PLACEMENT. CROCHETER WILL MONITOR THE PATIENT FOR ANY FUTURE NEEDS.
--- NOTE | 2023-11-04 11:04 | NUR ---
MED REC COMPLETE
--- NOTE | 2023-11-04 15:23 | NUR ---
PATIENT IS A 1-PACK DAY SMOKER AND REQUSTING NICOTINE REPLACEMENT. SEE NEW ORDERS. PATIENT UP TO THE BEDSIDE CAMMODE AND TOLERATING WELL. PATIENT REPORTS SOME MILD ANXIETY AND CRAVING FOR A CIGARETTE. PATIENT THANKFUL FOR CARE. FRESH SPRITE PROVIDED AT THE BEDSIDE. PATIENT REPORTS MINIMAL IMPROVEMENT IN PAIN WITH PRN MEDICATIONS ADMINISTERED PRIOR IN THE DAY. PRN TYLENOL GIVEN AT THIS TIME.
--- NOTE | 2023-11-04 17:45 | NUR ---
REPORT GIVEN TO LEONARDO SELLERS. LEONARDO AND RADHA HERE TO TRANSPORT PATIENT IN THE BED TO HER ROOM ON MS. PATIENT UPDATED ON PLAN OF CARE. ALL QUESTIONS WERE ANSWERED. REVIEWD SKIN CONCERNS WITH STAFF. PATIENT REMAINS ON 4L NC. PATIENT BETTER AFTER HAVING NICOTINE REPLACEMENT. ALL BELONGINGS SENT WITH PATIENT.
--- NOTE | 2023-11-04 19:15 | NUR ---
Patient resting in bed, no noted distress, watching TV, Report provided by day shift RN.
--- NOTE | 2023-11-04 21:51 | NUR ---
Patient up to BSC independently, Increased SOB with activity, VSS, lungs diminished, no noted cough, no noted SOB while at rest, lungs with diminished breath sounds, oxygen on at 4l/NC. Recieved neb tx per RT, Given toradol 7.5mg prior to start of shift and patient still rating pain at 7. Medicated with tylenol. Physician available and discussed patients pain level. Another 7.5mg Toradol ordered and given and increased prn dose to 15mg q6h prn. Patient continues watching TV, call light within reach.
--- NOTE | 2023-11-04 23:42 | EKG ---
[facility] [address] [facility] [place], [place] [address] Signed Sinus tachycardia Delayed transition Abnormal left axis deviation Confirmed by David Morales M.D. ([id number]) on 11/04/2023 11:42:34 PM Electronically Signed By: DAVID MORALES 11/04/23 2342 PATIENT NAME: WING CASTRO Electrocardiogram DATE OF : 60 PHYSICIAN: DAVID MORALES REPORT #: [id number] REPORT IS CONFIDENTIAL AND NOT TO BE RELEASED WITHOUT AUTHORIZATION
[2023-11-05] VITALS (8 sets, daily range): BP systolic 106–128; BP diastolic 53–70
--- NOTE | 2023-11-05 00:21 | NUR ---
Patient resting with light snore audible, no distress noted, appears comfortable, RR even and unlabored.
--- NOTE | 2023-11-05 01:55 | NUR ---
Patient awake, stated she got a little sleep, VSS, no resp distress, RT in and weaning O2 down to 3l/nc from 4.
--- NOTE | 2023-11-05 04:16 | NUR ---
Patient resting, appears comfortable, continous pulse ox on and sats 94%. no distress noted, call light within reach.
--- NOTE | 2023-11-05 05:21 | NUR ---
Patient awake, labs being drawn, VSS, lung status without change, O2 sats 92% on 3 liters, no noted SOB or distress, requested and given pain medication (15mg toradol). drinking coffee and watching TV now, call light within reach.
[2023-11-05 05:39] LABS: BASOPHILS 0.2 % (0-2); EOSINOPHILS 0.2 % (0-6); HEMATOCRIT 35.5 % (35.0-50.0); LYMPHOCYTES 1.1 % (24-44); MCH 35.6 (27-36); MCHC 33.8 g/dl (30-36); MCV 105.3 fl (81-99); MONOCYTES 7.5 % (0-12); PLATELET COUNT 227 K/uL (140-440); RBC 3.37 M/ul (4.3-5.7); RDW 14.1 (10.5-15.0)
[2023-11-05 05:54] LABS: ALBUMIN 2.6 g/dL (3.4-5.0); ALBUMIN/GLOBULIN RATIO 0.9 (1.1-2.4); ANION GAP 11.2 (7-21); BILIRUBIN, TOTAL 0.5 ng/dL (0.2-1.0); BUN/CREATININE RATIO 16.92 (6.0-28.6); CALCIUM 8.1 mg/dL (8.5-10.1); CREATININE, SERUM 0.65 mg/dL (0.55-1.02); POTASSIUM 4.2 mmol/L (3.5-5.1); PROTEIN, TOTAL 5.5 g/dL (6.4-8.2)
--- NOTE | 2023-11-05 10:19 | NUR ---
PT STATED THAT SHE WAS HAVING NAUSEA CALLED DR MORALES AT 0945 DR MORALES SAID TO GIVE 4MG OF ZOFRAN IV Q4 PRN. PT TOLERATED MEDS WELL. NO OTHER CARES NEEDED AT THIS TIME CALL LIGHT WITHIN REACH
--- NOTE | 2023-11-05 11:16 | NUR ---
PT STATES THAT SHE IS FEELING BETTER. CURRENTLY IN BED AWAKE A+O WATCHING TELEVISION AND DRINKING FLUIDS DESPITE CLAIMS OF NAUSEA. NO OTHER CARES OR REQUESTS NEEDED AT THIS TIME CALL LIGHT WITHIN REACH
--- NOTE | 2023-11-05 19:33 | NUR ---
RECEIVED REPORT FROM RAJEEV JACKSON RN,. PATIENT IS RESTING IN BED WATCHING TV. PATIENT DENIES ANY NEEDS. CALL LIGHT IN REACH.
--- NOTE | 2023-11-05 21:20 | NUR ---
PATIENT UP TO BSC. PATIENT INCVONT OF STOOL. BEDDING CAHNGED, GOWN CHANGED, AND ATTEND PLACED ON PATIENT. PATIENT BACK IN BED RESTING. PATIENT DENIES ANY SOB. PATIENT ASSESMENT COMPLETED. PATIENT RATES PAIN "ALL OVER" AT A 8/10, PRN MEDICATION GIVEN PER ORDER. PATIENT REPORTS FEELING ANXIOUS, PRN MEDICATION GIVENT PER ORDER. PATIENTS VITALS TAKEN AND RECORDED. INTAKE AND OUTPUT RECORDED. PATIENTS ASSESMENT COMPLETED. PATIENTS IV FLUSHED AND SL PER ORDER. PATIENT DENIES ANY FURTHER NEEDS. CALL LIGHT IN REACH.
--- NOTE | 2023-11-05 22:06 | NUR ---
PATIENT IS RESTING IN BED WATHCHING TV. PATIENT DENIES ANY NEEDS. CALL LIGHT IN REACH.
[2023-11-06] VITALS (8 sets, daily range): BP systolic 102–135; BP diastolic 66–85
--- NOTE | 2023-11-06 00:16 | NUR ---
PATIENT REPORTS 8/10 PAIN "ALL OVER", PRN MEDS GIVEN PER ORDER. PATIENT PROVIDED A SNACK. PATIENT DENIES ANY FURTHER NEEDS. CALL LIGHT IN REACH.
--- NOTE | 2023-11-06 02:09 | NUR ---
PATIENT IS RESTING IN BED WITH EYES CLOSED, CPOX READINGS ARE WNL. CALL IGHT IN REACH.
--- NOTE | 2023-11-06 02:58 | NUR ---
PATIENT CALLED AND REQUESTED MEDICATION FOR ANXIETY. PATIENT HAD RETURNED FROM [facility] AND RR INCREASED AND HAD NOTED SOB. PATIENT GIVEN PRN ANXIERY MEDICATION. PATIENT DENIED NEED FOR PRN NEB TX. PATIENT IS RESTING IN BED. PATIENT REMAINS ON 3L VIA NC AND CPOX IN USE. PATIENT PROVIDED SNACK AND SEVEN UP. PATIENT DENIES ANY FURTHER NEEDS. CALL LIGHT IN REACH.
--- NOTE | 2023-11-06 04:11 | NUR ---
PATIENT IS RESTING IN BED WITH EYES CLOSED, CPOX READINGS ARE WNL. PATIENT REMAINS ON 3L VIA NC. CALL LIGHT IN REACH.
--- NOTE | 2023-11-06 05:25 | NUR ---
PATIENT IS RESTING IN BED. VITALS TAKEN AND RECORDED. INTAKE AND OUTPUT RECORDED. PATIENT DENIES ANY SOB. PATIENT TITRATED TO 2L VIA NC. PATIENT DENIES ANY FURTHER NEEDS. CALL LIGHT IN REACH.
--- NOTE | 2023-11-06 06:41 | NUR ---
PATIENT REPORTS 5/10 PAIN "ALL OVER". PATIENT GIVEN PRN PAIN MEDICATION PER ORDER. PATIENT REMAINSON 2L VIA NC. WARM BLANKET PROVIDED. PATIENT DENIES ANY SOB. PATIENT DENIES ANY FURTHER NEEDS. CALL LIGHT IN REACH.
--- NOTE | 2023-11-06 07:10 | NUR ---
REPORT RECEIVED FROM SOLAR PHOTOVOLTAIC SYSTEMS ENGINEER RN CATHIE. PATIENT IS SITTING UPRIGHT IN THE BED WITH 2 L NASAL CANNULA. PATIENT STATED NO NEEDS AT THIS TIME. CALL LIGHT AND PERSONAL BELONGINGS ARE WITHIN REACH.
--- NOTE | 2023-11-06 08:35 | NUR ---
PATIENT 0800 AND 0900 MEDICATIONS ADMINISTERED PER THE EMAR. PRN ZOFRAN ADMINISTERED FOR NAUSEA AND ABDOMINAL PAIN UPON PATIENT REQUEST. PATIENT FULL ASSESSMENT COMPLETE AND DOCUMENTED IN THE CHART. PATIENT ON 2L NASAL CANNULA AND LUNG SOUNDS ARE DIMINISHED IN ALL LUNG HUMMEL BILATERALLY. CPOX IN PLACE AND AT THE BEDSIDE. CARDIAC WITH NORMAL S1 AND S2. RADIAL PULSES ARE STRONG BILATERALLY. PATIENT WITH NO COMPLAINTS OF NUMBNESS AND TINGLING. PATIENT STATED PAIN IS 6/10 IN THE CHEST AREA DUE TO COUGHING. BOWEL TONES ARE ACTIVE IN ALL FOUR QUADRANTS. PATIENT ABLE TO AMBULATE TO THE [facility] INDEPENDENTLY. PATIENT WITH BREAKFAST TRAY AT THE BEDSIDE BUT STATES SHE DOES NOT WANT TO EAT RIGHT NOW BECAUSE SHE DOES NOT HAVE AN APPETITE. PATIENT STATED NO FURTHER NEEDS AT THIS TIME. CALL LIGHT AND PERSONAL BELONGINGS ARE WITHIN REACH.
--- NOTE | 2023-11-06 10:38 | NUR ---
PT REPORTS SOB AFTER USING THE BATHROOM. 2L O2 VIA NC IN PLACE, 16 RPM, O2 SATS 95-92%. BREATHING TREATMENT RECEIVED AT 0930, SEE EMAR. LUNGS CLEAR. RT IN ROOM TO ASSESS. PULSE 88. PT REPORTS ANXIETY AND DESIRE FOR NICOTINE. PRN LORAZEPAM AND NICOTINE LOZENGE RECEIVED, SEE EMAR. PT POSTURE NO LONGER TENSE, PT RESTS WITH EYES CLOSED, RESP EVEN AND UNLABORED, 16 RPM, O2 SAT 92%, PULSE 84. PT NO LONGER REPORTS SOB OR ANXIETY.
--- NOTE | 2023-11-06 14:55 | NUR ---
PATIENT IS RESTING WITH EYES CLOSED AND RESPIRATIONS ARE EVEN AND UNLABORED. PATIENT IS ON 2 L NASAL CANNULA WITH THE CPOX AT THE BEDSIDE. PATIENT IS LYING IN BED WITH THE HOB ELEVATED. PATIENT WITH CALL LIGHT AND PERSONAL BELONGINGS ARE WITHIN REACH.
--- NOTE | 2023-11-06 15:41 | NUR ---
PATIENT IS SITTING UPRIGHT IN BED. PATIENT LUNG SOUNDS IN LUNG HUMMEL BILATERALLY. PATIENT IS ON 2L NC AND TOLERATING WELL. PATIENT WITH CPOX IN PLACE AT THE BEDSIDE. PATIENT IV SITE IS CLEAN, DRY, AND INTACT. IV SITE IN THE LEFT WRIST IS SALINE LOCKED. PATIENT STATED PAIN IS 8/10 AND HURTING "EVERYWHERE". PATIENT REQUESTING ANTI ANXIETY AND PAIN MEDICATION AT THIS TIME. PATIENT STATED NO FURTHER NEEDS AT THIS TIME. CALL LIGHT AND PERSONAL BLEONGINGS ARE WITHIN REACH.
--- NOTE | 2023-11-06 17:01 | NUR ---
PATIENT IS SITTING ON THE COMMODE AT THIS TIME. PATIENT STATED NO NEEDS AT THIS TIME. PATIENT EDUCATED TO USE THE CALL LIGHT IF THEY NEED ANYTHING.
--- NOTE | 2023-11-06 17:35 | NUR ---
PATIENT IS RESTING IN BED WITH THE HOB ELEVATED. PATIENT STATED "PAIN IS NOT BETTER AND THE ANXIETY IS GETTING BETTER" WHEN ASKED. PATIENT STATED NO FURTHER NEEDS AT THIS TIME. CALL LIGHT AND PERSONAL BELONGINGS ARE WITHIN REACH.
--- NOTE | 2023-11-06 18:18 | NUR ---
PATIENT IS RESTING IN THE BED WITH EYES CLOSED AND RESPIRATIONS ARE EVEN AND UNLABORED. PATIENT WITH 2 L ON NASAL CANNULA AND THE CPOX IS AT THE BEDSDIE. PATIENT WITH CALL LIGHT AND PERSONAL BELONGINGS ARE WITHIN REACH.
--- NOTE | 2023-11-06 19:24 | NUR ---
RECEIVED REPORT FROM DAY SHIFT RN. PATIENT IS RESTING IN BED WATCHING TV. PATIENT DENIES ANY NEEDS. CALL LIGHT IN REACH.
--- NOTE | 2023-11-06 20:05 | NUR ---
PATIENTS VITALS TAKEN AND RECORDED. PATIENTS INTAKE AND OUTPUT RECORDED. PATIENT STATED "I FEEL SO ANXIOUS". PRN ANXIETY MEDICATION GIVEN PER ORDER. RT IN ROOM TO ADMIN NEB. PATIENT ASSESMENT COMPLETED. PATIENTS IV FLUSHED AND SL PER ORDER. PATIENT RATES PAIN AT A 5/10 "ALL OVER", AND DENIES THE NEED FOR INTERVENTION AT THIS TIME. PATIENT PROVIDED WITH SNACK AND WARM BLANKET. PATIENT DENIES ANY FURTHER NEEDS. CALL LIGHT IN REACH.
--- NOTE | 2023-11-06 22:06 | NUR ---
PATIENT IS RESTING IN BED WITH EYES CLOSED, CPOX READINGS ARE WNL. PATIENTS CALL LIGHT IN REACH.
[2023-11-07] VITALS (10 sets, daily range): BP systolic 118–140; BP diastolic 68–83
--- NOTE | 2023-11-07 00:10 | NUR ---
PATIENT IS RESTING IN BED WITH EYES CLOSED, CPOX READINGS ARE WNL. CALL LIGHT IN REACH.
--- NOTE | 2023-11-07 01:58 | NUR ---
PATIENT REPORTED 7/10 PAIN "ALL OVER". PRN MEDICATION GIVEN PER ORDER. PATIENT REPORTED "BURNING" AT IV SITE. SITE ASSESED AND NO S/SX OF INFILTRATION NOTED. PATIENTS IV FLUSHED WITH NS AND DURING FLUSH PATIENTS IV INFILTRATED. PATIENTS IV DC'D AND NEW IV PLACED. PATIENT REPORTS BEING ANXIOUS, PRN ANXIETY MEDICATION GIVEN PER ORDER. PATIENT PROVIDED WITH SNACK AND FRESH SEVEN UP. PATIENT DENIES ANY FURTHER NEEDS. CALL LIGHT IN REACH.
--- NOTE | 2023-11-07 04:08 | NUR ---
PATIENT IS SITTING UP IN BED ATTEMPTING TO CALL THE KITCHEN TO ORDER BREAKFAST. PATIENT EDUCATED THAT SHE HAS TO CALL CLOSER TO 630. PATIENT VERBALIZED UNDERSTANDING. PATIENT REPORTS 8/10 PAIN "ALL OVER", PRN MEDICATION GIVEN PER ORDER. PATIENT IS REQUESTING TO GO OUTSIDE TO SMOKE. PATIENT EDUCATED THAT SHE ISNT ALLOWED TO GO SMOKE. PATIENT VERABLIZED UNDERSTANDING. PATIENT REPORTS SOB. RT IN ROOM TO ADMIN NEB. NO FURTHER NEEDS NOTED. CALL LIGHT IN REACH.
--- NOTE | 2023-11-07 05:28 | NUR ---
LAB IN ROOM. PATIENTS VITALS TAKEN AND RECORDED. NEW P[place] AND ATTEND IN PLACE. PATIENTS INTAKE AND OUTPUT RECORDED. PATIENT PLACED ON SPECIALTY MATTRESS. PATIENT TOLERATED ACTIVITY WELL. IV INFUSING PER ORDER. PATIENT PROVIDED SIPS OF WATER. PATIENT DENIES ANY FURTHER NEEDS. CALL LIGHT IN REACH. BED ALARM ON FOR SAFETY.
[2023-11-07 05:38] LABS: HEMATOCRIT 35.8 % (35.0-50.0); MCH 35.5 (27-36); MCHC 33.6 g/dl (30-36); MCV 105.7 fl (81-99); PLATELET COUNT 269 K/uL (140-440); RBC 3.38 M/ul (4.3-5.7); RDW 13.9 (10.5-15.0)
[2023-11-07 05:45] LABS: ALBUMIN 2.4 g/dL (3.4-5.0); ALBUMIN/GLOBULIN RATIO 0.92 (1.1-2.4); BILIRUBIN, TOTAL 0.3 ng/dL (0.2-1.0); BUN/CREATININE RATIO 15.38 (6.0-28.6); CALCIUM 8.3 mg/dL (8.5-10.1); CREATININE, SERUM 0.65 mg/dL (0.55-1.02)
[2023-11-07 06:03] LABS: LYMPHOCYTES, MANUAL DIFF 9; MONOCYTES, MANUAL DIFF 15; NEUTROPHILS, MANUAL DIFF 76
--- NOTE | 2023-11-07 07:05 | NUR ---
REPORT RECEIVED FROM AD COMPOSITOR RN CATHIE. PATIENT IS LYING IN BED WITH EYES OPEN AND RESPONDING APPROPRIATELY TO THE NURSES. PATIENT ON 2 L NASAL CANNULA WITH A CPOX AT THE BEDSIDE. PATIENT STATED NO NEEDS AT THIS TIME. CALL LIGHT AND PERSONAL BELONGINGS ARE WITHIN REACH.
--- NOTE | 2023-11-07 08:17 | NUR ---
0800 AND 0900 MEDICATIONS ADMINISTERED PER THE EMAR. PATIENT FULL ASSESSMENT COMPLETE AND DOCUMENTED IN THE CHART. PATIENT LUNG SOUNDS WITH EXPIRATORY WHEEZES IN ALL LUNG HUMMEL BILATERALLY. PATIENT ON 2 L NASAL CANNULA WITH THE CPOX AT THE BEDSIDE. PATIENT CARDIAC ASSESSMENT WITH NORMAL S1 AND S2. RADIAL PULSES ARE STRONG BILATERALLY. CAPILLARY REFILL IS LESS THAN 3 SECONDS IN THE UPPER EXTREMITITES BILATERALLY. BOWEL TONES ARE ACTIVE IN ALL FOUR QUADRANTS. PATIENT VOIDED 100 ML IN THE BEDSIDE COMMODE. PATIENT WITH NO COMPLAINTS OF NUMBNESS AND TINGLING AT THIS TIME. PATIENT WITH PAIN OF 7/10 "EVERYWHERE". PATIENT BREAKFAST TRAY IS AT THE BEDSIDE. PATIENT WITH ANTIBIOTIC INFUSING PER THE EMAR. BREATHING TREATMENT BY RT COMPLETE. PATIENT STATED NO FURTHER NEEDS AT THIS TIME. CALL LIGHT AND PERSONAL BELONGINGS ARE WITHIN REACH.
--- NOTE | 2023-11-07 08:30 | NUR ---
IV ABX INFUSION COMPLETE. PT SALINE LOCKED
--- NOTE | 2023-11-07 08:56 | NUR ---
PATIENT WORKING WITH PHYSICAL THERAPY AT THIS TIME.
--- NOTE | 2023-11-07 10:51 | NUR ---
medications given for anxiety, pain 9/10 "everywhere", and nausea. pt sitting at side of bed. lunch order placed for patient as requested. call light within reach.
--- NOTE | 2023-11-07 10:56 | NUR ---
PATIENT PRN ATIVAN, TYLENOL, AND ZOFRAN ADMINISTERED PER THE EMAR. PATIENT BREAKFAST HEAT BACK UP. PATIENT IS SITTING ON THE EDGE OF THE BED AT THIS TIME. PATIENT REQUESTING FOR PT TO RETURN LATER. PATIENT PAIN WAS 9/10 "EVERYWHERE". PATIENT STATED NO FURTHER NEEDS AT THIS TIME. CALL LIGHT AND PERSONAL BELONGINGS ARE WITHIN REACH.
--- NOTE | 2023-11-07 11:04 | NUR ---
UR NOTE [facility] PNEUMONIA (ISC) 11/04/23 MET CLINICAL INDICATIONS FOR ADMISSION TO INPATIENT CARE
--- NOTE | 2023-11-07 11:30 | NUR ---
PT RESTING IN BED, STATES NAUSEA HAS IMPROVED BUT STILL "A LITTLE NAUSEOUS". PT WAS ABLE TO EAT 50% OF BREAKFAST. NO REQUESTS AT THIS TIME.
--- NOTE | 2023-11-07 13:32 | NUR ---
PATIENT RESTING IN BED WITH EYES CLOSED AND RESPIRATIONS ARE EVEN AND UNLABORED. CALL LIGHT AND PERSONAL BELONGINGS ARE WITHIN REACH.
--- NOTE | 2023-11-07 13:52 | NUR ---
PATIENT LUNG SOUNDS ARE CLEAR BILATERALLY IN ALL LUNG HUMMEL. PATIENT ON 2 L NASAL CANNULA. CPOX IS IN PLACE AND POWER ON. PATIENT STATED PAIN IS AN 8/10 AND EVERYWHERE. PATIENT REQUESTING TO TAKE A NAP. SHADES ARE CLOSED TO PROMOTE REST. PATIENT STATED WANTING TO PLACE A DINNER ORDER LATER THIS AFTER NOON WHEN ASKED. INTAKE AND OUTPUT VALUES ARE DOCUMENTED IN THE CHART. PATIENT STATED NO FURTHER NEEDS AT THIS TIME. CALL LIGHT AND PERSONAL BELONGINGS ARE WITHIN REACH.
--- NOTE | 2023-11-07 14:39 | NUR ---
GIRLS SWIMMING COACH ENTERED FOR VITALS. PT RESTING HAS NO COMPLAINTS. CALL LIGHT WITHIN REACH
--- NOTE | 2023-11-07 16:13 | NUR ---
PATIENT GIVEN 650MG OF TYLENOL FOR PAIN "EVERYWHERE" PATIENT REQUESTED ATIVAN FOR ANXIETY AND 1MG GIVEN IV.
--- NOTE | 2023-11-07 17:13 | NUR ---
PT SITTING UP IN BED TO EAT DINNER. NO REQUESTS OR COMPLAINTS AT THIS TIME.
--- NOTE | 2023-11-07 18:18 | NUR ---
Gave Pt soda with dinner. No other needs expressed by Pt.
--- NOTE | 2023-11-07 18:24 | NUR ---
PT IN BED SLEEPING. WOKE PT AND SHE REPLIED "SHE WOULD LIKE TO GO HOME"
--- NOTE | 2023-11-07 19:09 | NUR ---
in bed, c/o n/v and pain everywhere. medicated with Zofran and Toradil IV
--- NOTE | 2023-11-07 20:50 | NUR ---
CALL LIGHT ANSWERED. PATIENT IS BACK IN BED FROM USING BEDSIDE COMMODE. CHANGED WHOLE BED LINEN DUE TO PATIENT HAD AN ACCIDENT AND WET THE BED. CHANGED GOWN. V/S AND I&O'S COMPLETED. WARM BLANKET PROVIDED. REGULAR SODA PROVIDED PER PATIENT. CALL LIGHT WITHIN REACH.
--- NOTE | 2023-11-07 22:24 | NUR ---
Resting, eys closed, no further c/o pain, n/v or anxiety.
--- NOTE | 2023-11-07 23:00 | NUR ---
C/O ANXIETY, MEDICATED WITH ATIVAN 1MG IV, SITTING EDGE OF BED, 7-UP AND GRAM CRACKERS GIVEN ON REQUEST, NO OTHER C/O
--- NOTE | 2023-11-08 01:15 | NUR ---
PT UTILIZES CALL LIGHT, REQUESTS PRN PAIN MEDICATION. CABLE INSTALLER REPAIRER TO ROOM FOR PRN MEDICATION ADMINISTRATION. PT REPORTS PAIN 8/10 "EVERYWHERE". UPON ATTEMPTING TO FLUSH IV LINE, IV AND WINDOW DRESSING NOTED TO BE SITTING ON THE PT'S BEDSIDE TABLE. PT STATES THAT SHE "MUST HAVE TAKEN IT OUT." IV START ATTEMPTED X 2, UNSUCCESSFUL. MIKE RN NOTIFIED, WILL ATTEMPT IV START.
--- NOTE | 2023-11-08 02:48 | NUR ---
PT USED CALL LIGHT, HELPED TO BSC, WAS INCONTINENT OF URINE, WHOLE BED LINEN AND GOWN CHANGED. BRUISING BACK OF LEGS NO CHANGES. NO C/O N/A OR ANXIETY, PT PULLED IV EARLIER, HAVE BEEN UNABLE TO RESTART, WILL TRY TO RESTART WITH AN US GUIDED IV SOON FLOAT NURSE OR BUS ESCORT AVAILABLE. PT INSTRUCTED ON THIS, FRESH COFFEE GIVEN ON REQUESTS
--- NOTE | 2023-11-08 03:44 | NUR ---
IV site restarted by supervisor unloading. Pt c/o 05/19 everywhere pain, medicated with Toradol IV, c/o increaed anxiety, medicated with Ativan 1mg IV. In bed, turns and repositions self
--- NOTE | 2023-11-08 05:32 | NUR ---
PT HAS SLEPT OFF AND ON THIS SHIFT. ON 2LNC, CPOX AT BEDSIDE, SATS WNL. DESATS TO 84-89% WHEN SNORING. IN THE 95'S WHEN AWAKE, HOB ELEVATED, LUNGS DIM AT BASES. INDEPENDENT TO SBA WHEN UP TO BSC. WAS INCONTINENT OF URINE X2 AND LINEN AND GOWN CHANGED, ATTENDS IN PLACE. RASH OVER BACK OF LEGS AND BACK NO CHANGES. PT ACCIDENTALLY PULLED IV, NEW IV SITE IN PLACE. PT C/O "EVERYWHERE" PAIN AND WAS MEDICATED WITH TORADOL 2X, FAIR TO GOOD PAIN RELIEF. C/O INCREAED ANXIETY, MEDICATED WITH ATIVAN 2x, EFFECTIVE. COOPERATIVE WITH ASSESSMENTS AND CARES
[2023-11-08 05:36] VITALS: BP 128/70
[2023-11-08 05:41] LABS: HEMATOCRIT 38.9 % (35.0-50.0); HEMOGLOBIN 12.9 g/dL (12.0-18.0); MCH 35.4 (27-36); MCHC 33.3 g/dl (30-36); MCV 106.4 fl (81-99); PLATELET COUNT 264 K/uL (140-440); RBC 3.65 M/ul (4.3-5.7); RDW 14.2 (10.5-15.0)
[2023-11-08 05:59] LABS: ALBUMIN 2.6 g/dL (3.4-5.0); ALBUMIN/GLOBULIN RATIO 0.96 (1.1-2.4); ANION GAP 10.6 (7-21); BILIRUBIN, TOTAL 0.3 ng/dL (0.2-1.0); BUN/CREATININE RATIO 11.47 (6.0-28.6); CALCIUM 8.4 mg/dL (8.5-10.1); CREATININE, SERUM 0.61 mg/dL (0.55-1.02); POTASSIUM 3.6 mmol/L (3.5-5.1); PROTEIN, TOTAL 5.3 g/dL (6.4-8.2)
[2023-11-08 06:01] LABS: BANDS, MANUAL DIFF 1; EOSINOPHILS, MANUAL DIFF 2; LYMPHOCYTES, MANUAL DIFF 18; MONOCYTES, MANUAL DIFF 10; NEUTROPHILS, MANUAL DIFF 69
--- NOTE | 2023-11-08 08:30 | NUR ---
PT UP TO COMMODE FOR LARGE BM. TOLERATED WELL.
--- NOTE | 2023-11-08 08:40 | NUR ---
ASSESSMENT COMPLETE. PT RESTING IN BED WITH RESPIRATIONS EVEN AND UNLABORED.
[2023-11-08 09:28] VITALS: BP 143/81
--- NOTE | 2023-11-08 09:46 | NUR ---
ROUNDS. PT DECLINED VISIT AT THIS TIME. PROVIDED SILENT PRAYER AFTER EXITING ROOM.
--- NOTE | 2023-11-08 10:30 | NUR ---
Spoke with Luciano. She plans on dc today around 4 pm. We discussed pts complaint her 02 is not working correctly. UPdate I spoke with [place] and they will be in town today and will stop at her home to look at her 02 equipment. They will not be able to stay until 4pm. She states she will make a call to a different friend to check for dc around 12n. She denies other needs and plans on dc to home today.
--- NOTE | 2023-11-08 11:00 | NUR ---
NOtified by staff, they attempted to make a fu appt with Sunshine Ramirez and the offices states she is no longer their pt. I returned and asked if she would like help with a pcp. She would like to use [facility]. I will email pts chart per protocol. Let pt know, they will call her with a fu appt and then schedule her with an appt to establish care. Pt was able to schedule an earlier ride. She states she will be going with friend and states she will not be home for 2-3 hours. I asked what time I should tell Heather to be at her home and she states 3 pm. I let her know, we will send her with a [employer] tank. Pt refuses a tank. I let her know I have small portable tank for her to take. Pt. declines and states she will not use. She will use her 02 when she gets home. I called Heather and they will see her after 3 pm. I updated them pt is stating her concentrator is make an odd noise. She is refusing to take a tank to get home.
--- NOTE | 2023-11-08 11:36 | NUR ---
DR PRATER AND CASE MANAGEMENT IN TO VISIT WITH PT REGARDING DISCHARGE.
[2023-11-08] MEDS ORDERED: CEFDINIR300 MG PO (12:09)
[2023-11-08 12:59] VITALS: BP 148/91
--- NOTE | 2023-11-08 13:45 | NUR ---
Notified by staff Luciano graham at close to 1300. She just called stating she needs Heather pillai as her oxygen is not working. I called Heather and requested they visit pt as soon as possible.
== END 2023-11-08 13:05 | disposition home or self-care (01) | DRG 193 ==
LOC: ED 22:18 → CCU 11-04 00:09 → MS 11-04 17:45
PROVIDERS: Family Medicine; ADMIT Internal Medicine; ATTEND Internal Medicine
DX: J18.9 Pneumonia, unspecified organism (principal); J96.01 Acute respiratory failure with hypoxia; J44.1 Chronic obstructive pulmonary disease with (acute) exacerbation; J44.0 Chronic obstructive pulmonary disease with (acute) lower respiratory infection; J90 Pleural effusion, not elsewhere classified; F41.9 Anxiety disorder, unspecified; F17.210 Nicotine dependence, cigarettes, uncomplicated; F10.90 Alcohol use, unspecified, uncomplicated; G89.29 Other chronic pain; Z98.890 Other specified postprocedural states; Z90.49 Acquired absence of other specified parts of digestive tract; Z90.89 Acquired absence of other organs; Z90.710 Acquired absence of both cervix and uterus; Z88.8 Allergy status to other drugs, medicaments and biological substances; Z88.1 Allergy status to other antibiotic agents; Z79.51 Long term (current) use of inhaled steroids; Z79.82 Long term (current) use of aspirin; Z11.52 Encounter for screening for COVID-19; Z60.2 Problems related to living alone
CPT/HCPCS: 36415; 51702; 71045; 80053; 82803; 83735; 83880; 85025; 87502; 93005; 93010; 94640; 94760; 94762; 99285-25; 99406; A9270; J0456; J0696; J1650; J1885; J1940; J2060; J2270; J2405; J2920; J2930; J7060; J7512; U0002

== ENCOUNTER 2023-11-10 11:05 | Emergency (ER) | payer OTHER ==
[~2023-11-10] VITALS: Ht 162.6 cm; Wt 60.4 kg
[~2023-11-10 11:05] MED LIST changes: +CEFDINIR300 MG PO
--- OUTSIDE RECORDS SUMMARY | 2023-11-10 11:09 | XMS ---
PreManage Notification: WING CASTRO Security Clinical Research Nurse Events No recent Security Events currently on file CRITERIA MET - [facility] - [facility] - 2 Visits in 30 Days CARE PROVIDERS DALY STOCK Physician [employer] 10/12/2021-Current PHONE: Unknown -Bird- Dentist: Nuclear Weapons Specialist [facility] PHONE: [phone] -, Donna- Dentist: Nuclear Weapons Specialist [facility] PHONE: [phone] ZANA YANG SIMON Acoustic Engineer/Partner Marketing Manager Current PHONE: [phone] Viktor has no Care Guidelines for this patient. Fouzia VISIT COUNT (12 MO.) 3 [facility] TOTAL 3 NOTE: Visits indicate total known visits. ED/UCC VISIT TRACKING (12 MO.) 11/10/2023 11:06 [facility] TYPE: Emergency COMPLAINT: - DIFFICULTY BREATHING 11/03/2023 22:18 [facility] TYPE: Emergency COMPLAINT: - SHORTNESS OF BREATH 06/27/2023 18:45 [facility] TYPE: Emergency COMPLAINT: - DIFFICULTY BREATHING INPATIENT VISIT TRACKING (12 MO.) 11/04/2023 00:09 [facility] TYPE: Medical Surgical COMPLAINT: - RLL PNEUMONIA,PLEURAL EFFUSION,COPD EXAC DIAGNOSES: - Acquired absence of both cervix and uterus - Acquired absence of both cervix and uterus - Acquired absence of other organs - Acquired absence of other organs - Acquired absence of other specified parts of digestive tract - Acquired absence of other specified parts of digestive tract - Acute respiratory failure with hypoxia - Acute respiratory failure with hypoxia - Alcohol use, unspecified, uncomplicated - Alcohol use, unspecified, uncomplicated - Allergy status to other antibiotic agents - Allergy status to other antibiotic agents - Allergy status to other drugs, medicaments and biological substances - Allergy status to other drugs, medicaments and biological substances - Anxiety disorder, unspecified - Anxiety disorder, unspecified - Chronic obstructive pulmonary disease with (acute) exacerbation - Chronic obstructive pulmonary disease with (acute) exacerbation - Chronic obstructive pulmonary disease with (acute) lower respiratory infection - Chronic obstructive pulmonary disease with (acute) lower respiratory infection - Encounter for screening for COVID-19 - local 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 driver (current) use of aspirin - 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
[2023-11-10 11:34] LABS: HEMATOCRIT 43.2 % (35.0-50.0); HEMOGLOBIN 14.4 g/dL (12.0-18.0); MCH 35.1 (27-36); MCHC 33.3 g/dl (30-36); MCV 105.4 fl (81-99); PLATELET COUNT 319 K/uL (140-440); RDW 13.7 (10.5-15.0)
[2023-11-10 11:52] LABS: ALBUMIN 2.7 g/dL (3.4-5.0); ALBUMIN/GLOBULIN RATIO 0.84 (1.1-2.4); ANION GAP 10.3 (7-21); BILIRUBIN, TOTAL 0.8 ng/dL (0.2-1.0); BUN/CREATININE RATIO 8.47 (6.0-28.6); CALCIUM 8.8 mg/dL (8.5-10.1); CREATININE, SERUM 0.59 mg/dL (0.55-1.02); POTASSIUM 3.3 mmol/L (3.5-5.1); PROTEIN, TOTAL 5.9 g/dL (6.4-8.2)
[2023-11-10 12:05] LABS: INFLUENZA B NAA NEGATIVE (NEGATIVE); RESPIRATORY SYNCYTIAL VIR NAA NEGATIVE (NEGATIVE)
[2023-11-10 12:06] LABS: BANDS, MANUAL DIFF 1; LYMPHOCYTES, MANUAL DIFF 7; MONOCYTES, MANUAL DIFF 11; NEUTROPHILS, MANUAL DIFF 81
[2023-11-11 09:51] VITALS: BP 145/82
== END 2023-11-11 09:51 | disposition short-term general hospital (02) ==
LOC: ED 11:05
PROVIDERS: Emergency Medicine
DX: J18.9 Pneumonia, unspecified organism (principal); J90 Pleural effusion, not elsewhere classified; J44.9 Chronic obstructive pulmonary disease, unspecified; Z88.5 Allergy status to narcotic agent; Z88.8 Allergy status to other drugs, medicaments and biological substances; Z79.899 Other long term (current) drug therapy
CPT/HCPCS: 36415; 71045; 71260; 80053; 83880; 85025; 87502; 94640; 94644; 94645; 96366; 96367; 96375; 96376; 99285-25; A9270; A9270-GY; J0692; J2060; J2930; J3370; J7060; Q9967; U0002